=== PATIENT | male | born 1930 | race Two or more races ===

== ENCOUNTER 2017-10-02 11:46 | Inpatient (IN) | payer OTHER ==
[2017-10-02] VITALS (10 sets, daily range): BP systolic 86–116; BP diastolic 43–63
[~2017-10-02] VITALS: Ht 175.3 cm; Wt 79.2 kg
[~2017-10-02 11:46] MED LIST: ETOMIDATE (2MG/ML) 20ML VIAL IV ONE
[2017-10-02] MEDS: MIDAZOLAM DRIP 50 mg/50mL 50 ML IV SCH (11:55)
[2017-10-02] MEDS ORDERED: SODIUM CHLORIDE 0.9% 1,000 ML IV ONE (12:06)
[2017-10-02] MEDS ORDERED: MIDAZOLAM DRIP 50 mg/50mL 0 ML IV ONE (12:07)
[2017-10-02] MEDS ORDERED: ETOMIDATE (2MG/ML) 20ML VIAL IV ONE (12:08)
[2017-10-02] MEDS ORDERED: CLINDAMYCIN 600MG IV 50 ML IV ONE (12:15)
[2017-10-02] MEDS ORDERED: cefTRIAXone 1GM/10ml IVPUSH 10 ML IV ONE (12:15)
[2017-10-02] MEDS ORDERED: NOREPINEPHRINE 8 MG/250ML KIT 250 ML IV ONE (12:29)
[2017-10-02] MEDS: NOREPINEPHRINE 8 MG/250ML KIT 250 ML IV SCH (12:51)
[2017-10-02 13:00] LABS: Hematocrit 33.6 % (41.0-53.0); Hemoglobin 10.7 g/dL (13.5-17.5); Platelet Count (auto) 100 10^3/uL (140-450); Red Blood Cells 3.36 10^6/uL (4.5-5.90)
[2017-10-02 13:05] LABS: Mean Corpuscular Hemoglobin 31.8 pg (28.0-32.0); Mean Corpuscular Hgb Conc. 31.8 g/dL (32.0-36.0)
[2017-10-02 13:19] LABS: Basophils % (manual) 0 (0.0-2.0); Blast Cells 0; Eosinophils % (manual) 0 (0-7); Promyelocytes % 0; Reactive Lymphocytes 0
[2017-10-02 13:21] LABS: Albumin 3.2 g/dL (3.4-5.0); BUN/Creatinine Ratio 15.8; Bilirubin, Total 1.2 mg/dL (0.2-1.0); Calcium 8.2 mg/dL (8.5-10.1); Potassium 3.3 mmol/L (3.5-5.1); Total Protein 6.7 g/dL (6.4-8.2)
[2017-10-02 13:37] LABS: INR 1.15 (0.9-1.15); Partial Thromboplastin Time 27.9 sec (22.64-33.71); Prothrombin Time 12.6 sec (9.37-12.3)
[2017-10-02 13:45] LABS: Lactic Acid w/Reflex 9.8 mmol/L (0.4-2.0)
[2017-10-02 13:53] LABS: Band Neutrophils % (manual) 53; Lymphocytes % (manual) 2 (10.0-50.0); Metamyelocytes % 9; Monocytes % (manual) 2 (0-12); Myelocytes % 3
[2017-10-02] MEDS ORDERED: MORPHINE SULFATE 4 MG/ML SYR/VIAL IV PRN ×3 (15:30)
[2017-10-02] MEDS: SODIUM CHLORIDE 0.9% 1,000 ML IV SCH (15:30)
[2017-10-02] MEDS ORDERED: PIPERACILLIN-TAZOB 3.375GM 100 ML IV ONE (15:30)
[2017-10-02] MEDS ORDERED: SODIUM CHLORIDE 0.9% 2,000 ML IV ONE (15:30)
[2017-10-02] MEDS ORDERED: NITROGLYCERIN 0.4 MG SL TAB SL PRN (15:30)
[2017-10-02] MEDS ORDERED: PROMETHAZINE HCL 25 MG/ML 1ML IV PRN (15:30)
[2017-10-02] MEDS ORDERED: LORazepam 2MG/ML-1ML VIAL IV PRN (15:30)
[2017-10-02] MEDS ORDERED: PANTOPRAZOLE 40 MG/10 ML VIAL IV ONE (15:45)
[2017-10-02 16:18] LABS: Amylase 33 U/L (25-115); Lipase 83 U/L (73-393)
[2017-10-02] MEDS: LINEZOLID 600MG/300ML 300 ML IV SCH (17:00)
[2017-10-02] MEDS ORDERED: SITA100T7 PO (17:25)
[2017-10-02] MEDS ORDERED: LEV50T PO (17:25)
[2017-10-02] MEDS ORDERED: GLIP-116 PO (17:25)
[2017-10-02] MEDS ORDERED: METF-372 PO (17:25)
[2017-10-02] MEDS ORDERED: AMLO10TA2 PO (17:25)
[2017-10-02] MEDS ORDERED: FERR27TA2 PO (17:25)
[2017-10-02] MEDS: fentaNYL Drip 2500mCg/250mlNS 250 ML IV SCH (19:00)
[2017-10-02 19:02] LABS: Hemoglobin 10.2 g/dL (13.5-17.5)
[2017-10-02 19:08] LABS: Hematocrit 32.9 % (41.0-53.0)
[2017-10-02 19:32] LABS: Urine Bacteria NONE SEEN /hpf (None Seen); Urine Blood 3+ /uL (Negative); Urine Specific Gravity 1.021 (1.001-1.035); Urine WBC 3 /hpf (0 - 3)
[2017-10-02] MEDS: AZITHROMYCIN 500MG/ 250ML 250 ML IV SCH (21:03)
[2017-10-02] MEDS: PIPERACILLIN-TAZOB 3.375GM 100 ML IV SCH (22:54)
[2017-10-02] MEDS ORDERED: LEVO25TA6 PO (23:05)
[2017-10-02] MEDS ORDERED: FURO40TA4 PO (23:06)
[2017-10-03] VITALS (102 sets, daily range): BP systolic 77–148; BP diastolic 39–70
[2017-10-03 00:10] LABS: Hemoglobin 9.9 g/dL (13.5-17.5)
[2017-10-03 00:14] LABS: Hematocrit 31.1 % (41.0-53.0); Mean Corpuscular Hgb Conc. 31.7 g/dL (32.0-36.0); Mean Corpuscular Volume 100.8 fL (80.0-100.0); Platelet Count (auto) 104 10^3/uL (140-450); Red Blood Cells 3.09 10^6/uL (4.5-5.90); Red Cell Distribution Width 18.3 % (11.8-14.3)
[2017-10-03] MEDS ORDERED: SODIUM BICARBONATE 8.4% INJ 50ML SYRINGE ONE (00:14)
[2017-10-03 00:22] LABS: INR 1.26 (0.9-1.15); Partial Thromboplastin Time 32.7 sec (22.64-33.71); Prothrombin Time 13.8 sec (9.37-12.3)
[2017-10-03 00:29] LABS: Calcium 7.2 mg/dL (8.5-10.1); Potassium 4.1 mmol/L (3.5-5.1)
[2017-10-03 00:32] LABS: Albumin 2.8 g/dL (3.4-5.0); BUN/Creatinine Ratio 17.4
[2017-10-03 00:33] LABS: White Blood Cell 71.8 10^3/uL (4.4-10.8)
[2017-10-03 00:34] LABS: Basophils % (manual) 0 (0.0-2.0); Eosinophils % (manual) 0 (0-7); Promyelocytes % 0; Reactive Lymphocytes 0
[2017-10-03 00:35] LABS: Bilirubin, Total 1.4 mg/dL (0.2-1.0); Total Protein 6.5 g/dL (6.4-8.2)
[2017-10-03 00:39] LABS: Lactic Acid w/Reflex 9.2 mmol/L (0.4-2.0)
[2017-10-03 01:09] LABS: Band Neutrophils % (manual) 32; Blast Cells 1; Lymphocytes % (manual) 7 (10.0-50.0); Metamyelocytes % 6; Monocytes % (manual) 8 (0-12); Myelocytes % 3
[2017-10-03] MEDS: SODIUM CHLORIDE 0.9% 1,000 ML IV SCH ×3 (01:10→16:48)
[2017-10-03] MEDS: ACETAMINOPHEN 650 mg PER 20 mL UD GT PRN ×2 (01:10→09:01)
[2017-10-03] MEDS: ALBUTEROL SULF 2.5 MG/0.5ML(0.5%) NEB SOLN NEB SCH ×5 (02:11→18:16)
[2017-10-03] MEDS: IPRATROPIUM BROM 0.5 MG/2.5ML INH SOL NEB SCH ×4 (02:11→18:15)
[2017-10-03] MEDS ORDERED: SODIUM BICARBONATE 8.4 % INJ 50ML VIAL IV ONE ×4 (02:23→16:15)
[2017-10-03] MEDS: PIPERACILLIN-TAZOB 3.375GM 100 ML IV SCH ×4 (04:00→22:00)
[2017-10-03] MEDS: LINEZOLID 600MG/300ML 300 ML IV SCH (05:00)
[2017-10-03 06:08] LABS: Hematocrit 30.2 % (41.0-53.0)
[2017-10-03 06:11] LABS: Hemoglobin 9.5 g/dL (13.5-17.5); Mean Corpuscular Hemoglobin 31.8 pg (28.0-32.0); Mean Corpuscular Hgb Conc. 31.6 g/dL (32.0-36.0); Mean Corpuscular Volume 100.8 fL (80.0-100.0); Platelet Count (auto) 99 10^3/uL (140-450); Red Blood Cells 2.99 10^6/uL (4.5-5.90); Red Cell Distribution Width 18.3 % (11.8-14.3)
[2017-10-03 06:20] LABS: White Blood Cell 63.4 10^3/uL (4.4-10.8)
[2017-10-03 06:21] LABS: Blast Cells 0; Eosinophils % (manual) 0 (0-7); Promyelocytes % 0; Reactive Lymphocytes 0
[2017-10-03 06:35] LABS: Albumin 2.7 g/dL (3.4-5.0); Potassium 3.9 mmol/L (3.5-5.1)
[2017-10-03 06:37] LABS: Bilirubin, Total 1.3 mg/dL (0.2-1.0); Total Protein 6.2 g/dL (6.4-8.2)
[2017-10-03 06:55] LABS: Band Neutrophils % (manual) 28; Basophils % (manual) 1 (0.0-2.0); Lymphocytes % (manual) 2 (10.0-50.0); Metamyelocytes % 5; Monocytes % (manual) 10 (0-12); Myelocytes % 1
[2017-10-03] MEDS: MIDAZOLAM DRIP 50 mg/50mL 50 ML IV SCH ×4 (08:09→19:49)
[2017-10-03] MEDS: PHENYLEPHRINE INJ 20 MG in SODIUM CHL 0.9% 250 ML IV SCH ×2 (08:10→08:11)
[2017-10-03] MEDS: NOREPINEPHRINE 8 MG/250ML KIT 250 ML IV SCH ×2 (10:01→19:48)
[2017-10-03] MEDS: PANTOPRAZOLE 40 MG/10 ML VIAL IV SCH (10:32)
[2017-10-03] MEDS: ENOXAPARIN SOD 30 MG/0.3 ML SYRINGE SC SCH (10:32)
[2017-10-03] MEDS: PHENYLEPHRINE IV 250 ML IV SCH ×2 (13:30→21:47)
[2017-10-03] MEDS ORDERED: DEXTROSE (50%) 50ML SYRG IV PRN (14:45)
[2017-10-03 15:48] LABS: Hematocrit 32.6 % (41.0-53.0); Platelet Count (auto) 95 10^3/uL (140-450); Red Blood Cells 3.16 10^6/uL (4.5-5.90)
[2017-10-03 15:58] LABS: Mean Corpuscular Hemoglobin 31.6 pg (28.0-32.0); Mean Corpuscular Hgb Conc. 30.6 g/dL (32.0-36.0); Mean Corpuscular Volume 103.2 fL (80.0-100.0); Red Cell Distribution Width 19.4 % (11.8-14.3)
[2017-10-03 16:03] LABS: Albumin 2.7 g/dL (3.4-5.0); BUN/Creatinine Ratio 19.4; Bilirubin, Total 1.1 mg/dL (0.2-1.0); Calcium 6.8 mg/dL (8.5-10.1); Magnesium 1.4 mg/dL (1.6-2.6); Potassium 4.9 mmol/L (3.5-5.1); Total Protein 6.4 g/dL (6.4-8.2)
[2017-10-03 16:10] LABS: White Blood Cell 60.6 10^3/uL (4.4-10.8)
[2017-10-03 16:11] LABS: Basophils % (manual) 0 (0.0-2.0); Blast Cells 0; Eosinophils % (manual) 0 (0-7); Promyelocytes % 0; Reactive Lymphocytes 0
[2017-10-03] MEDS ORDERED: VANCOMYCIN PER PHARMACY 0 MG IV SCH (18:00)
[2017-10-03] MEDS: ACCU-CHEK COMFORT CURVE STRIP VI SCH (18:27)
[2017-10-03] MEDS ORDERED: VANCOMYCIN 1,250 MG in D5W 5% 250 ML IV ONE (18:30)
[2017-10-03] MEDS: InsuLIN REG 1unit/0.01ml Soln (100units/ml) SC SCH (18:33)
[2017-10-03] MEDS: AZITHROMYCIN 500MG/ 250ML 250 ML IV SCH (19:48)
[2017-10-03 20:30] LABS: Band Neutrophils % (manual) 10; Lymphocytes % (manual) 3 (10.0-50.0); Metamyelocytes % 2; Monocytes % (manual) 10 (0-12); Myelocytes % 3
[2017-10-03] MEDS: fentaNYL Drip 2500mCg/250mlNS 250 ML IV SCH ×2 (21:06→23:00)
[2017-10-03] MEDS: SODIUM BICARBONATE 50ML VIAL 150 ML in D5W 5% 1,000 ML IV SCH (21:57)
[2017-10-04] VITALS (107 sets, daily range): BP systolic 71–142; BP diastolic 34–74
[2017-10-04] MEDS: ACCU-CHEK COMFORT CURVE STRIP VI SCH ×4 (00:07→18:13)
[2017-10-04] MEDS: IPRATROPIUM BROM 0.5 MG/2.5ML INH SOL NEB SCH ×4 (00:07→18:28)
[2017-10-04] MEDS: ALBUTEROL SULF 2.5 MG/0.5ML(0.5%) NEB SOLN NEB SCH ×4 (00:10→18:28)
[2017-10-04] MEDS: InsuLIN REG 1unit/0.01ml Soln (100units/ml) SC SCH ×4 (00:17→18:19)
[2017-10-04] MEDS: NOREPINEPHRINE 8 MG/250ML KIT 250 ML IV SCH ×2 (01:48→08:51)
[2017-10-04 02:28] LABS: Creatinine, Urine 14 mg/dL (30.0-125.0); Sodium Urine 59 mmol/L (40-220)
[2017-10-04 03:58] LABS: Hematocrit 29.8 % (41.0-53.0); Red Blood Cells 3.02 10^6/uL (4.5-5.90)
[2017-10-04] MEDS: PIPERACILLIN-TAZOB 3.375GM 100 ML IV SCH ×4 (04:03→22:27)
[2017-10-04 04:05] LABS: Alanine Aminotransferase 24 U/L (16-61); Albumin 2.5 g/dL (3.4-5.0); Alkaline Phosphatase 48 U/L (45-117); Anion Gap 12 (5-15); Aspartate Aminotransferase 32 U/L (15-37); BUN/Creatinine Ratio 19.6; Bilirubin, Total 1.2 mg/dL (0.2-1.0); Blood Urea Nitrogen 32 mg/dL (7-18); Calcium 6.7 mg/dL (8.5-10.1); Carbon Dioxide 25 mmol/L (21-32); Chloride 101 mmol/L (98-107); Cholesterol < 50 mg/dL (< 200); GFR African American 52 mL/min; GFR Non-African American 43 mL/min; Glucose 343 mg/dL (74-106); HDL Cholesterol 14 mg/dL (40-59); Hemoglobin 9.7 g/dL (13.5-17.5); LDL Cholesterol 14 mg/dL (< 100); Lactate Dehydrogenase 275 U/L (87-241); Magnesium 1.5 mg/dL (1.6-2.6); Mean Corpuscular Hemoglobin 32.2 pg (28.0-32.0); Mean Corpuscular Hgb Conc. 32.6 g/dL (32.0-36.0); Mean Corpuscular Volume 98.6 fL (80.0-100.0); Platelet Count (auto) 87 10^3/uL (140-450); Potassium 3.4 mmol/L (3.5-5.1); Red Cell Distribution Width 18.1 % (11.8-14.3); Sodium 138 mmol/L (136-145); Triglycerides 132 mg/dL (< 150)
[2017-10-04 04:07] LABS: Phosphorus 2.3 mg/dL (2.5-4.90); Uric Acid 4.9 mg/dL (3.5-7.2)
[2017-10-04 04:11] LABS: White Blood Cell 48.6 10^3/uL (4.4-10.8)
[2017-10-04 04:12] LABS: Basophils % (manual) 0 (0.0-2.0); Blast Cells 0; Eosinophils % (manual) 0 (0-7); Metamyelocytes % 0; Myelocytes % 0; Promyelocytes % 0; Reactive Lymphocytes 0
[2017-10-04 04:44] LABS: Band Neutrophils % (manual) 19; Lymphocytes % (manual) 6 (10.0-50.0); Monocytes % (manual) 3 (0-12)
[2017-10-04] MEDS: PHENYLEPHRINE IV 250 ML IV SCH (06:04)
[2017-10-04] MEDS: MIDAZOLAM DRIP 50 mg/50mL 50 ML IV SCH (06:20)
[2017-10-04] MEDS: SODIUM BICARBONATE 50ML VIAL 150 ML in D5W 5% 1,000 ML IV SCH (08:30)
[2017-10-04] MEDS: VANCOMYCIN 1GM/250ML 250 ML IV SCH (08:49)
[2017-10-04] MEDS: PANTOPRAZOLE 40 MG/10 ML VIAL IV SCH (10:28)
[2017-10-04] MEDS: ENOXAPARIN SOD 30 MG/0.3 ML SYRINGE SC SCH (10:29)
[2017-10-04] MEDS: fentaNYL Drip 2500mCg/250mlNS 250 ML IV SCH (10:34)
[2017-10-04] MEDS: ALBUTEROL SULF 2.5 MG/0.5ML(0.5%) NEB SOLN NEB PRN (12:21)
[2017-10-04] MEDS: ACETAMINOPHEN 650 mg PER 20 mL UD GT PRN (12:29)
[2017-10-04] MEDS: SODIUM CHLORIDE 0.9% 1,000 ML IV SCH ×2 (12:39→22:15)
[2017-10-04 14:39] LABS: Lactic Acid w/Reflex 3.6 mmol/L (0.4-2.0)
[2017-10-04] MEDS: MAGNESIUM SULFATE 1GM/100ML 100 ML IV SCH ×2 (16:00→17:00)
[2017-10-04] MEDS ORDERED: MAGNESIUM SULFATE 1GM/100ML 100 ML IV ONE (18:27)
[2017-10-04] MEDS: AZITHROMYCIN 500MG/ 250ML 250 ML IV SCH (20:00)
[2017-10-05] VITALS (108 sets, daily range): BP systolic 97–140; BP diastolic 57–84
[2017-10-05] MEDS: ACCU-CHEK COMFORT CURVE STRIP VI SCH ×4 (00:05→23:20)
[2017-10-05] MEDS: InsuLIN REG 1unit/0.01ml Soln (100units/ml) SC SCH ×4 (00:06→23:29)
[2017-10-05] MEDS: SODIUM CHLORIDE 0.9% 1,000 ML IV SCH ×2 (02:45→18:15)
[2017-10-05] MEDS: NOREPINEPHRINE 8 MG/250ML KIT 250 ML IV SCH ×2 (02:45→12:46)
[2017-10-05] MEDS: IPRATROPIUM BROM 0.5 MG/2.5ML INH SOL NEB SCH ×4 (03:42→18:36)
[2017-10-05] MEDS: ALBUTEROL SULF 2.5 MG/0.5ML(0.5%) NEB SOLN NEB SCH ×4 (03:42→18:35)
[2017-10-05 03:54] LABS: Basophils # (auto) 0.1 uL; Basophils % (auto) 0.3 % (0.0-2.0); Eosinophils # (auto) 0 uL; Eosinophils % (auto) 0.2 % (0.0-7.0); Hematocrit 30.2 % (41.0-53.0); Hemoglobin 10.1 g/dL (13.5-17.5); Lymphocytes # (auto) 1.2 uL; Lymphocytes % (auto) 6.2 % (10.0-50.0); Mean Corpuscular Hemoglobin 32.8 pg (28.0-32.0); Mean Corpuscular Hgb Conc. 33.5 g/dL (32.0-36.0); Mean Corpuscular Volume 97.9 fL (80.0-100.0); Monocytes # (auto) 1.2 uL; Monocytes % (auto) 6.1 % (0.0-12.0); Neutrophils # (auto) 17.5 uL; Neutrophils % (auto) 87.2 % (37.0-80.0); Nucleated Red Blood Cells % 0.1 %; Platelet Count (auto) 89 10^3/uL (140-450); Red Blood Cells 3.08 10^6/uL (4.5-5.90); Red Cell Distribution Width 17.7 % (11.8-14.3); White Blood Cell 20.1 10^3/uL (4.4-10.8)
[2017-10-05 04:08] LABS: INR 1.1 (0.9-1.15)
[2017-10-05 04:12] LABS: Albumin 2.2 g/dL (3.4-5.0); Calcium 6.8 mg/dL (8.5-10.1); Magnesium 1.9 mg/dL (1.6-2.6)
[2017-10-05 04:14] LABS: BUN/Creatinine Ratio 20.2
[2017-10-05] MEDS: PIPERACILLIN-TAZOB 3.375GM 100 ML IV SCH ×4 (04:14→21:59)
[2017-10-05 04:16] LABS: Lactic Acid w/Reflex 2.1 mmol/L (0.4-2.0)
[2017-10-05 04:17] LABS: Bilirubin, Total 1.5 mg/dL (0.2-1.0); Total Protein 6.1 g/dL (6.4-8.2)
[2017-10-05] MEDS: VANCOMYCIN 1GM/250ML 250 ML IV SCH (09:08)
[2017-10-05] MEDS ORDERED: MIDAZOLAM DRIP 50 mg/50mL 0 ML IV ONE (09:14)
[2017-10-05] MEDS ORDERED: POTASSIUM CHL 20MEQ/100ML 200 ML IV ONE (09:36)
[2017-10-05] MEDS ORDERED: MAGNESIUM SULFATE 1GM/100ML 100 ML IV ONE (09:45)
[2017-10-05] MEDS: POTASSIUM CHL 20MEQ/100ML 100 ML IV SCH ×2 (09:47→11:00)
[2017-10-05] MEDS: PANTOPRAZOLE 40 MG/10 ML VIAL IV SCH (10:43)
[2017-10-05] MEDS: ENOXAPARIN SOD 30 MG/0.3 ML SYRINGE SC SCH (10:45)
[2017-10-05] MEDS: MIDAZOLAM DRIP 50 mg/50mL 50 ML IV SCH (12:22)
[2017-10-05] MEDS: fentaNYL Drip 2500mCg/250mlNS 250 ML IV SCH (12:45)
[2017-10-05] MEDS ORDERED: DEXTROSE (50%) 50ML SYRG IV PRN (12:45)
[2017-10-05] MEDS: FLUCONAZOLE 200MG/100ML 100 ML IV SCH ×2 (15:01→16:05)
[2017-10-05] MEDS: ACETAMINOPHEN 650 mg PER 20 mL UD GT PRN (18:20)
[2017-10-05] MEDS: AZITHROMYCIN 500MG/ 250ML 250 ML IV SCH (20:02)
[2017-10-06] VITALS (107 sets, daily range): BP systolic 94–146; BP diastolic 55–86
[2017-10-06] MEDS: IPRATROPIUM BROM 0.5 MG/2.5ML INH SOL NEB SCH ×4 (00:18→18:23)
[2017-10-06] MEDS: ALBUTEROL SULF 2.5 MG/0.5ML(0.5%) NEB SOLN NEB SCH ×4 (00:18→18:23)
[2017-10-06] MEDS: PIPERACILLIN-TAZOB 3.375GM 100 ML IV SCH ×4 (03:38→22:10)
[2017-10-06 04:04] LABS: Hematocrit 30.6 % (41.0-53.0); Hemoglobin 10.3 g/dL (13.5-17.5); Mean Corpuscular Hemoglobin 32.9 pg (28.0-32.0); Mean Corpuscular Hgb Conc. 33.6 g/dL (32.0-36.0); Mean Corpuscular Volume 97.7 fL (80.0-100.0); Platelet Count (auto) 100 10^3/uL (140-450); Red Blood Cells 3.13 10^6/uL (4.5-5.90); Red Cell Distribution Width 17.1 % (11.8-14.3); White Blood Cell 8.6 10^3/uL (4.4-10.8)
[2017-10-06 04:12] LABS: Basophils % (manual) 0 (0.0-2.0); Blast Cells 0; Eosinophils % (manual) 0 (0-7); Promyelocytes % 0; Reactive Lymphocytes 0
[2017-10-06] MEDS: SODIUM CHLORIDE 0.9% 1,000 ML IV SCH (04:15)
[2017-10-06 04:55] LABS: Albumin 2.2 g/dL (3.4-5.0); BUN/Creatinine Ratio 19.1; Calcium 7.1 mg/dL (8.5-10.1); Magnesium 2.2 mg/dL (1.6-2.6); Potassium 3.4 mmol/L (3.5-5.1)
[2017-10-06 04:57] LABS: Bilirubin, Total 1.2 mg/dL (0.2-1.0); Total Protein 6.1 g/dL (6.4-8.2)
[2017-10-06 05:00] LABS: Band Neutrophils % (manual) 15; Lymphocytes % (manual) 16 (10.0-50.0); Metamyelocytes % 1; Monocytes % (manual) 14 (0-12); Myelocytes % 1
[2017-10-06] MEDS: ACCU-CHEK COMFORT CURVE STRIP VI SCH ×4 (06:00→23:54)
[2017-10-06] MEDS: InsuLIN REG 1unit/0.01ml Soln (100units/ml) SC SCH ×4 (06:43→23:54)
[2017-10-06] MEDS: VANCOMYCIN 1GM/250ML 250 ML IV SCH (08:59)
[2017-10-06] MEDS: PANTOPRAZOLE 40 MG/10 ML VIAL IV SCH (10:08)
[2017-10-06] MEDS: FLUCONAZOLE 200MG/100ML 100 ML IV SCH (10:08)
[2017-10-06] MEDS: ENOXAPARIN SOD 30 MG/0.3 ML SYRINGE SC SCH (10:08)
[2017-10-06] MEDS: MIDAZOLAM DRIP 50 mg/50mL 50 ML IV SCH (12:22)
[2017-10-06] MEDS ORDERED: POTASSIUM CHL 10% (20 MEQ/15ML) 15ml ORAL SOLN GT ONE (14:15)
[2017-10-06] MEDS ORDERED: FUROSEMIDE 40 MG/4 ML VIAL IV ONE (14:15)
[2017-10-06] MEDS: Diabetisource AC 1 Liter GT SCH (15:16)
[2017-10-07] VITALS (100 sets, daily range): BP systolic 83–128; BP diastolic 48–70
[2017-10-07] MEDS: ALBUTEROL SULF 2.5 MG/0.5ML(0.5%) NEB SOLN NEB SCH ×4 (00:20→18:21)
[2017-10-07] MEDS: IPRATROPIUM BROM 0.5 MG/2.5ML INH SOL NEB SCH ×4 (00:20→18:20)
[2017-10-07] MEDS: PIPERACILLIN-TAZOB 3.375GM 100 ML IV SCH ×4 (03:51→22:00)
[2017-10-07 04:14] LABS: Hematocrit 29.1 % (41.0-53.0); Hemoglobin 9.9 g/dL (13.5-17.5); Mean Corpuscular Volume 97.1 fL (80.0-100.0); Platelet Count (auto) 91 10^3/uL (140-450); Red Cell Distribution Width 16.9 % (11.8-14.3); White Blood Cell 6.4 10^3/uL (4.4-10.8)
[2017-10-07 04:25] LABS: Basophils % (manual) 0 (0.0-2.0); Blast Cells 0; Eosinophils % (manual) 0 (0-7); Myelocytes % 0; Promyelocytes % 0; Reactive Lymphocytes 0
[2017-10-07 04:30] LABS: Albumin 2.2 g/dL (3.4-5.0); BUN/Creatinine Ratio 19.8; Bilirubin, Total 0.8 mg/dL (0.2-1.0); Calcium 7.1 mg/dL (8.5-10.1); Potassium 3.9 mmol/L (3.5-5.1)
[2017-10-07 05:04] LABS: Band Neutrophils % (manual) 4; Lymphocytes % (manual) 31 (10.0-50.0); Metamyelocytes % 1; Monocytes % (manual) 12 (0-12)
[2017-10-07] MEDS: InsuLIN REG 1unit/0.01ml Soln (100units/ml) SC SCH ×3 (06:00→18:09)
[2017-10-07] MEDS: ACCU-CHEK COMFORT CURVE STRIP VI SCH ×4 (06:27→23:59)
[2017-10-07] MEDS: VANCOMYCIN 1GM/250ML 250 ML IV SCH (09:18)
[2017-10-07] MEDS: PANTOPRAZOLE 40 MG/10 ML VIAL IV SCH (10:41)
[2017-10-07] MEDS: ENOXAPARIN SOD 30 MG/0.3 ML SYRINGE SC SCH (10:41)
[2017-10-07] MEDS: NOREPINEPHRINE 8 MG/250ML KIT 250 ML IV SCH (10:42)
[2017-10-07] MEDS: FLUCONAZOLE 200MG/100ML 100 ML IV SCH (14:03)
[2017-10-07] MEDS ORDERED: LACTULOSE 20Gm/30ML SOLN PO ONE (14:30)
[2017-10-07] MEDS ORDERED: INSULIN LANTUS (GLARGINE) 1 /0.01ml (100units/ml) SC ONE (14:30)
[2017-10-07] MEDS ORDERED: METOCLOPRAMIDE HCL 5MG/ml INJ 2ml VIAL IV ONE (15:45)
[2017-10-07] MEDS: INSULIN LANTUS (GLARGINE) 1 /0.01ml (100units/ml) SC SCH (22:00)
[2017-10-07] MEDS ORDERED: D5W/SOD CHLO 0.9% 1,000 ML IV ONE (22:45)
[2017-10-08] VITALS (99 sets, daily range): BP systolic 89–140; BP diastolic 51–98
[2017-10-08] MEDS: IPRATROPIUM BROM 0.5 MG/2.5ML INH SOL NEB SCH ×4 (00:01→18:31)
[2017-10-08] MEDS: ALBUTEROL SULF 2.5 MG/0.5ML(0.5%) NEB SOLN NEB SCH ×4 (00:02→18:31)
[2017-10-08] MEDS: PIPERACILLIN-TAZOB 3.375GM 100 ML IV SCH ×4 (04:08→22:00)
[2017-10-08 04:47] LABS: Hematocrit 28.6 % (41.0-53.0); Hemoglobin 9.8 g/dL (13.5-17.5); Mean Corpuscular Hemoglobin 33.2 pg (28.0-32.0); Mean Corpuscular Hgb Conc. 34.2 g/dL (32.0-36.0); Mean Corpuscular Volume 97.2 fL (80.0-100.0); Platelet Count (auto) 89 10^3/uL (140-450); Red Blood Cells 2.94 10^6/uL (4.5-5.90); Red Cell Distribution Width 17.3 % (11.8-14.3); White Blood Cell 6.3 10^3/uL (4.4-10.8)
[2017-10-08 04:50] LABS: Basophils % (manual) 0 (0.0-2.0); Blast Cells 0; Eosinophils % (manual) 0 (0-7); Myelocytes % 0; Promyelocytes % 0
[2017-10-08 04:58] LABS: BUN/Creatinine Ratio 20.4; Calcium 7.4 mg/dL (8.5-10.1); Potassium 3.6 mmol/L (3.5-5.1)
[2017-10-08] MEDS: ACCU-CHEK COMFORT CURVE STRIP VI SCH ×3 (05:48→17:43)
[2017-10-08] MEDS: InsuLIN REG 1unit/0.01ml Soln (100units/ml) SC SCH ×4 (05:49→17:43)
[2017-10-08 05:50] LABS: Band Neutrophils % (manual) 5; Lymphocytes % (manual) 26 (10.0-50.0)
[2017-10-08 05:51] LABS: Metamyelocytes % 2; Monocytes % (manual) 11 (0-12); Reactive Lymphocytes 4
[2017-10-08] MEDS ORDERED: VANCOMYCIN 1,250 MG in D5W 5% 250 ML IV SCH (09:00)
[2017-10-08] MEDS: PANTOPRAZOLE 40 MG/10 ML VIAL IV SCH (09:49)
[2017-10-08] MEDS: FLUCONAZOLE 200MG/100ML 100 ML IV SCH (09:49)
[2017-10-08] MEDS: NOREPINEPHRINE 8 MG/250ML KIT 250 ML IV SCH (12:22)
[2017-10-08] MEDS: Diabetisource AC 1 Liter GT SCH (13:30)
[2017-10-08] MEDS: INSULIN LANTUS (GLARGINE) 1 /0.01ml (100units/ml) SC SCH (22:00)
[2017-10-09] VITALS (56 sets, daily range): BP systolic 116–147; BP diastolic 64–91
[2017-10-09] MEDS: ACCU-CHEK COMFORT CURVE STRIP VI SCH ×5 (00:20→23:09)
[2017-10-09] MEDS: InsuLIN REG 1unit/0.01ml Soln (100units/ml) SC SCH ×6 (00:21→23:10)
[2017-10-09] MEDS: IPRATROPIUM BROM 0.5 MG/2.5ML INH SOL NEB SCH ×4 (00:23→18:35)
[2017-10-09] MEDS: ALBUTEROL SULF 2.5 MG/0.5ML(0.5%) NEB SOLN NEB SCH ×4 (00:23→18:35)
[2017-10-09] MEDS: VANCOMYCIN 1,250 MG in D5W 5% 250 ML IV SCH ×2 (03:14→20:43)
[2017-10-09 03:50] LABS: Hematocrit 29.3 % (41.0-53.0); Mean Corpuscular Hemoglobin 33.1 pg (28.0-32.0); Mean Corpuscular Hgb Conc. 34.1 g/dL (32.0-36.0); Platelet Count (auto) 99 10^3/uL (140-450); Red Blood Cells 3.02 10^6/uL (4.5-5.90); Red Cell Distribution Width 16.6 % (11.8-14.3); White Blood Cell 7.5 10^3/uL (4.4-10.8)
[2017-10-09 04:07] LABS: Basophils % (manual) 0 (0.0-2.0); Blast Cells 0; Eosinophils % (manual) 0 (0-7); Promyelocytes % 0; Reactive Lymphocytes 0
[2017-10-09] MEDS: PIPERACILLIN-TAZOB 3.375GM 100 ML IV SCH ×4 (04:09→22:00)
[2017-10-09 04:58] LABS: Band Neutrophils % (manual) 10; Lymphocytes % (manual) 25 (10.0-50.0); Metamyelocytes % 4; Monocytes % (manual) 23 (0-12); Myelocytes % 2
[2017-10-09] MEDS: FLUCONAZOLE 200MG/100ML 100 ML IV SCH (09:29)
[2017-10-09] MEDS: ACETAMINOPHEN 650 mg PER 20 mL UD GT PRN ×2 (09:36→20:43)
[2017-10-09] MEDS: PANTOPRAZOLE 40 MG/10 ML VIAL IV SCH (09:36)
[2017-10-09] MEDS: NOREPINEPHRINE 8 MG/250ML KIT 250 ML IV SCH (11:57)
[2017-10-09] MEDS ORDERED: POTASSIUM CHL 10% (20 MEQ/15ML) 15ml ORAL SOLN GT ONE (12:15)
[2017-10-09] MEDS ORDERED: FUROSEMIDE 20 MG/2 ML VIAL IV ONE (12:15)
[2017-10-09] MEDS ORDERED: MICAFUNGIN SODIUM 100 MG in SODIUM CHL 0.9% 100 ML IV ONE (12:15)
[2017-10-09] MEDS: LORazepam 2MG/ML-1ML VIAL IV PRN ×2 (12:51→20:43)
[2017-10-09] MEDS: INSULIN LANTUS (GLARGINE) 1 /0.01ml (100units/ml) SC SCH (22:00)
[2017-10-10] VITALS (55 sets, daily range): BP systolic 103–154; BP diastolic 56–101
[2017-10-10] MEDS: IPRATROPIUM BROM 0.5 MG/2.5ML INH SOL NEB SCH ×4 (00:10→18:54)
[2017-10-10] MEDS: ALBUTEROL SULF 2.5 MG/0.5ML(0.5%) NEB SOLN NEB SCH ×4 (00:10→18:54)
[2017-10-10] MEDS: LORazepam 2MG/ML-1ML VIAL IV PRN ×3 (03:25→19:51)
[2017-10-10 03:35] LABS: Hematocrit 28.9 % (41.0-53.0); Hemoglobin 9.8 g/dL (13.5-17.5); Mean Corpuscular Hemoglobin 32.4 pg (28.0-32.0); Mean Corpuscular Hgb Conc. 33.8 g/dL (32.0-36.0); Mean Corpuscular Volume 95.7 fL (80.0-100.0); Platelet Count (auto) 106 10^3/uL (140-450); Red Blood Cells 3.02 10^6/uL (4.5-5.90); Red Cell Distribution Width 16.8 % (11.8-14.3); White Blood Cell 9.6 10^3/uL (4.4-10.8)
[2017-10-10 03:54] LABS: Albumin 2.5 g/dL (3.4-5.0); BUN/Creatinine Ratio 8.2; Calcium 7.8 mg/dL (8.5-10.1); Potassium 3.1 mmol/L (3.5-5.1)
[2017-10-10 03:57] LABS: Bilirubin, Total 0.9 mg/dL (0.2-1.0); Total Protein 6.9 g/dL (6.4-8.2)
[2017-10-10 04:03] LABS: Basophils % (manual) 0 (0.0-2.0); Blast Cells 0; Eosinophils % (manual) 0 (0-7); Reactive Lymphocytes 0
[2017-10-10] MEDS: PIPERACILLIN-TAZOB 3.375GM 100 ML IV SCH ×4 (04:35→21:32)
[2017-10-10 04:50] LABS: Band Neutrophils % (manual) 11; Lymphocytes % (manual) 12 (10.0-50.0); Metamyelocytes % 9; Monocytes % (manual) 20 (0-12); Myelocytes % 6; Promyelocytes % 1
[2017-10-10] MEDS ORDERED: POTASSIUM CHL 10% (20 MEQ/15ML) 15ml ORAL SOLN GT ONE ×3 (05:45→12:15)
[2017-10-10] MEDS: InsuLIN REG 1unit/0.01ml Soln (100units/ml) SC SCH ×4 (06:00→23:54)
[2017-10-10] MEDS: ACCU-CHEK COMFORT CURVE STRIP VI SCH ×4 (06:07→23:54)
[2017-10-10] MEDS ORDERED: FUROSEMIDE 20 MG/2 ML VIAL IV ONE ×2 (09:30→12:15)
[2017-10-10] MEDS: PANTOPRAZOLE 40 MG/10 ML VIAL IV SCH (10:00)
[2017-10-10] MEDS: ACETAMINOPHEN 650 mg PER 20 mL UD GT PRN (10:21)
[2017-10-10] MEDS ORDERED: POTASSIUM CHL 10% (20 MEQ/15ML) 15ml ORAL SOLN ONE (12:07)
[2017-10-10] MEDS ORDERED: FUROSEMIDE 20 MG/2 ML VIAL ONE (12:07)
[2017-10-10] MEDS: MICAFUNGIN SODIUM 100 MG in SODIUM CHL 0.9% 100 ML IV SCH (13:22)
[2017-10-10] MEDS ORDERED: MORPHINE SULFATE INJECTION 1 ML ONE (18:05)
[2017-10-10] MEDS: VANCOMYCIN 1,250 MG in D5W 5% 250 ML IV SCH (18:14)
[2017-10-10] MEDS: INSULIN LANTUS (GLARGINE) 1 /0.01ml (100units/ml) SC SCH (21:32)
[2017-10-10] MEDS: MORPHINE SULFATE 4 MG/ML SYR/VIAL IV PRN (22:17)
[2017-10-11] VITALS (71 sets, daily range): BP systolic 98–159; BP diastolic 58–94
[2017-10-11] MEDS: IPRATROPIUM BROM 0.5 MG/2.5ML INH SOL NEB SCH ×4 (00:25→18:23)
[2017-10-11] MEDS: ALBUTEROL SULF 2.5 MG/0.5ML(0.5%) NEB SOLN NEB SCH ×4 (00:25→18:24)
[2017-10-11] MEDS: LORazepam 2MG/ML-1ML VIAL IV PRN ×2 (02:06→20:03)
[2017-10-11 03:59] LABS: Hematocrit 28.2 % (41.0-53.0); Hemoglobin 9.6 g/dL (13.5-17.5); Mean Corpuscular Hemoglobin 32.7 pg (28.0-32.0); Mean Corpuscular Volume 96.3 fL (80.0-100.0); Platelet Count (auto) 115 10^3/uL (140-450); Red Blood Cells 2.93 10^6/uL (4.5-5.90); Red Cell Distribution Width 16.7 % (11.8-14.3); White Blood Cell 9.9 10^3/uL (4.4-10.8)
[2017-10-11 04:15] LABS: BUN/Creatinine Ratio 6.7; Calcium 7.9 mg/dL (8.5-10.1); Potassium 3.4 mmol/L (3.5-5.1)
[2017-10-11 04:17] LABS: Basophils % (manual) 0 (0.0-2.0); Blast Cells 0; Eosinophils % (manual) 0 (0-7); Promyelocytes % 0
[2017-10-11] MEDS: PIPERACILLIN-TAZOB 3.375GM 100 ML IV SCH ×4 (04:22→22:09)
[2017-10-11] MEDS: MORPHINE SULFATE 4 MG/ML SYR/VIAL IV PRN ×2 (04:22→11:57)
[2017-10-11 04:50] LABS: Band Neutrophils % (manual) 6; Lymphocytes % (manual) 24 (10.0-50.0); Metamyelocytes % 6; Monocytes % (manual) 21 (0-12); Myelocytes % 8; Reactive Lymphocytes 2
[2017-10-11] MEDS: VANCOMYCIN 1,250 MG in D5W 5% 250 ML IV SCH (04:54)
[2017-10-11] MEDS: InsuLIN REG 1unit/0.01ml Soln (100units/ml) SC SCH ×3 (05:41→17:32)
[2017-10-11] MEDS: ACCU-CHEK COMFORT CURVE STRIP VI SCH ×3 (05:41→17:32)
[2017-10-11] MEDS: PANTOPRAZOLE 40 MG/10 ML VIAL IV SCH (10:28)
[2017-10-11] MEDS: MICAFUNGIN SODIUM 100 MG in SODIUM CHL 0.9% 100 ML IV SCH (10:28)
[2017-10-11] MEDS ORDERED: POTASSIUM CHL 10% (20 MEQ/15ML) 15ml ORAL SOLN GT ONE (13:00)
[2017-10-11] MEDS ORDERED: FUROSEMIDE 40 MG/4 ML VIAL IV ONE (13:00)
[2017-10-11] MEDS ORDERED: POTASSIUM CHL 20MEQ/100ML 200 ML IV ONE (14:04)
[2017-10-11] MEDS ORDERED: POTASSIUM CHL 20MEQ/100ML 100 ML IV SCH (14:15)
[2017-10-11] MEDS ORDERED: HALOPERIDOL LACTATE 5 MG/ML INJ VIAL IM ONE (20:45)
[2017-10-11] MEDS: INSULIN LANTUS (GLARGINE) 1 /0.01ml (100units/ml) SC SCH (22:09)
[2017-10-12] VITALS (23 sets, daily range): BP systolic 100–152; BP diastolic 63–106
[2017-10-12] MEDS: MORPHINE SULFATE 4 MG/ML SYR/VIAL IV PRN (00:05)
[2017-10-12] MEDS: ACCU-CHEK COMFORT CURVE STRIP VI SCH ×4 (00:40→18:13)
[2017-10-12] MEDS: InsuLIN REG 1unit/0.01ml Soln (100units/ml) SC SCH ×4 (00:40→18:13)
[2017-10-12] MEDS: ALBUTEROL SULF 2.5 MG/0.5ML(0.5%) NEB SOLN NEB SCH ×5 (00:53→23:25)
[2017-10-12] MEDS: IPRATROPIUM BROM 0.5 MG/2.5ML INH SOL NEB SCH ×5 (00:53→23:25)
[2017-10-12] MEDS ORDERED: FUROSEMIDE 20 MG/2 ML VIAL ONE (01:58)
[2017-10-12] MEDS ORDERED: FUROSEMIDE 20 MG/2 ML VIAL IV ONE (02:00)
[2017-10-12 02:37] LABS: Hematocrit 30.7 % (41.0-53.0); Hemoglobin 10.4 g/dL (13.5-17.5); Mean Corpuscular Hemoglobin 32.3 pg (28.0-32.0); Mean Corpuscular Volume 94.9 fL (80.0-100.0); Platelet Count (auto) 131 10^3/uL (140-450); Red Blood Cells 3.23 10^6/uL (4.5-5.90); Red Cell Distribution Width 16.5 % (11.8-14.3)
[2017-10-12 02:45] LABS: Basophils % (manual) 0 (0.0-2.0); Blast Cells 0; Promyelocytes % 0; Reactive Lymphocytes 0
[2017-10-12 02:59] LABS: BUN/Creatinine Ratio 8.3; Calcium 8.4 mg/dL (8.5-10.1); Magnesium 1.7 mg/dL (1.6-2.6)
[2017-10-12 04:13] LABS: Band Neutrophils % (manual) 8; Eosinophils % (manual) 1 (0-7); Lymphocytes % (manual) 18 (10.0-50.0); Metamyelocytes % 6; Monocytes % (manual) 25 (0-12); Myelocytes % 4
[2017-10-12] MEDS ORDERED: POTASSIUM CHL 20MEQ/100ML 100 ML IV ONE (04:45)
[2017-10-12] MEDS: PIPERACILLIN-TAZOB 3.375GM 100 ML IV SCH ×4 (05:10→21:45)
[2017-10-12] MEDS: VANCOMYCIN 1,250 MG in D5W 5% 250 ML IV SCH ×2 (09:00→09:34)
[2017-10-12] MEDS: PANTOPRAZOLE 40 MG/10 ML VIAL IV SCH (09:40)
[2017-10-12] MEDS: MICAFUNGIN SODIUM 100 MG in SODIUM CHL 0.9% 100 ML IV SCH (09:41)
[2017-10-12] MEDS ORDERED: FUROSEMIDE 40 MG/4 ML VIAL IV ONE (12:30)
[2017-10-12] MEDS ORDERED: POTASSIUM CHL 20 Meq TABLET PO ONE (12:30)
[2017-10-12] MEDS: INSULIN LANTUS (GLARGINE) 1 /0.01ml (100units/ml) SC SCH (21:46)
[2017-10-13] VITALS (8 sets, daily range): BP systolic 111–126; BP diastolic 68–86
[2017-10-13] MEDS: ACCU-CHEK COMFORT CURVE STRIP VI SCH ×4 (00:05→17:54)
[2017-10-13] MEDS: VANCOMYCIN 1,250 MG in D5W 5% 250 ML IV SCH (00:05)
[2017-10-13] MEDS: InsuLIN REG 1unit/0.01ml Soln (100units/ml) SC SCH ×4 (00:05→18:06)
[2017-10-13] MEDS: PIPERACILLIN-TAZOB 3.375GM 100 ML IV SCH ×2 (04:43→09:52)
[2017-10-13 05:16] LABS: Hematocrit 29.8 % (41.0-53.0); Hemoglobin 10.3 g/dL (13.5-17.5); Mean Corpuscular Hemoglobin 32.8 pg (28.0-32.0); Mean Corpuscular Hgb Conc. 34.4 g/dL (32.0-36.0); Mean Corpuscular Volume 95.3 fL (80.0-100.0); Platelet Count (auto) 133 10^3/uL (140-450); Red Blood Cells 3.13 10^6/uL (4.5-5.90); Red Cell Distribution Width 17.1 % (11.8-14.3); White Blood Cell 7.8 10^3/uL (4.4-10.8)
[2017-10-13 05:23] LABS: Promyelocytes % 0; Reactive Lymphocytes 0
[2017-10-13 05:24] LABS: Blast Cells 0
[2017-10-13 05:33] LABS: Calcium 8.3 mg/dL (8.5-10.1)
[2017-10-13 05:35] LABS: Potassium 2.8 mmol/L (3.5-5.1)
[2017-10-13] MEDS: IPRATROPIUM BROM 0.5 MG/2.5ML INH SOL NEB SCH ×3 (06:09→18:41)
[2017-10-13] MEDS: ALBUTEROL SULF 2.5 MG/0.5ML(0.5%) NEB SOLN NEB SCH ×3 (06:09→18:41)
[2017-10-13 06:38] LABS: Band Neutrophils % (manual) 11; Basophils % (manual) 1 (0.0-2.0); Eosinophils % (manual) 1 (0-7); Lymphocytes % (manual) 25 (10.0-50.0); Metamyelocytes % 3; Monocytes % (manual) 21 (0-12); Myelocytes % 4
[2017-10-13] MEDS: POTASSIUM CHL 20MEQ/100ML 100 ML IV SCH ×2 (07:29→09:51)
[2017-10-13] MEDS: PANTOPRAZOLE 40 MG/10 ML VIAL IV SCH (09:52)
[2017-10-13] MEDS: FUROSEMIDE 40 MG/4 ML VIAL IV SCH (09:52)
[2017-10-13] MEDS: MICAFUNGIN SODIUM 100 MG in SODIUM CHL 0.9% 100 ML IV SCH (09:54)
[2017-10-13] MEDS ORDERED: POTASSIUM CHL 20 Meq TABLET PO SCH (10:00)
[2017-10-13] MEDS ORDERED: MORPHINE SULFATE 4 MG/ML SYR/VIAL IV PRN (10:45)
[2017-10-13] MEDS ORDERED: LORazepam 2MG/ML-1ML VIAL IV PRN (10:45)
[2017-10-13] MEDS ORDERED: MORPHINE SULFATE 8mg/ml INJ SDV IV PRN (16:00)
[2017-10-13] MEDS: ACETAMINOPHEN 650 mg PER 20 mL UD GT PRN (21:37)
[2017-10-14] VITALS (7 sets, daily range): BP systolic 114–138; BP diastolic 69–86
[2017-10-14] MEDS: ACCU-CHEK COMFORT CURVE STRIP VI SCH ×4 (00:14→18:05)
[2017-10-14] MEDS: InsuLIN REG 1unit/0.01ml Soln (100units/ml) SC SCH ×4 (00:15→18:05)
[2017-10-14] MEDS: ALBUTEROL SULF 2.5 MG/0.5ML(0.5%) NEB SOLN NEB SCH ×4 (00:38→18:30)
[2017-10-14] MEDS: IPRATROPIUM BROM 0.5 MG/2.5ML INH SOL NEB SCH ×4 (00:38→18:30)
[2017-10-14 05:26] LABS: Albumin 2.9 g/dL (3.4-5.0); BUN/Creatinine Ratio 8.6; Bilirubin, Total 0.8 mg/dL (0.2-1.0); Calcium 8.4 mg/dL (8.5-10.1); Magnesium 1.9 mg/dL (1.6-2.6); Total Protein 7.4 g/dL (6.4-8.2)
[2017-10-14] MEDS: POTASSIUM CHL 10% (20 MEQ/15ML) 15ml ORAL SOLN PO SCH (10:48)
[2017-10-14] MEDS: PANTOPRAZOLE 40 MG/10 ML VIAL IV SCH (10:48)
[2017-10-14] MEDS: MICAFUNGIN SODIUM 100 MG in SODIUM CHL 0.9% 100 ML IV SCH (10:48)
[2017-10-14] MEDS: FUROSEMIDE 40 MG/4 ML VIAL IV SCH (10:48)
[2017-10-14] MEDS: cefTRIAXone 1GM/10ml IVPUSH 10 ML IV SCH (10:49)
[2017-10-14] MEDS ORDERED: POTASSIUM CHL 20MEQ/100ML 100 ML IV ONE (14:45)
[2017-10-14] MEDS: D5W/SOD CHL 0.45% 1,000 ML IV SCH (16:34)
[2017-10-14] MEDS: ALBUTEROL SULF 2.5 MG/0.5ML(0.5%) NEB SOLN NEB PRN (21:35)
[2017-10-15] VITALS (11 sets, daily range): BP systolic 104–135; BP diastolic 62–84
[2017-10-15] MEDS: InsuLIN REG 1unit/0.01ml Soln (100units/ml) SC SCH ×4 (00:13→17:58)
[2017-10-15] MEDS: ACCU-CHEK COMFORT CURVE STRIP VI SCH ×4 (00:14→17:58)
[2017-10-15] MEDS: ALBUTEROL SULF 2.5 MG/0.5ML(0.5%) NEB SOLN NEB SCH ×4 (00:21→18:31)
[2017-10-15] MEDS: IPRATROPIUM BROM 0.5 MG/2.5ML INH SOL NEB SCH ×4 (00:21→18:30)
[2017-10-15 05:26] LABS: Albumin 2.9 g/dL (3.4-5.0); Calcium 8.4 mg/dL (8.5-10.1); Potassium 3.4 mmol/L (3.5-5.1)
[2017-10-15 05:28] LABS: BUN/Creatinine Ratio 9.9
[2017-10-15 05:31] LABS: Bilirubin, Total 0.7 mg/dL (0.2-1.0); Total Protein 7.7 g/dL (6.4-8.2)
[2017-10-15] MEDS: D5W/SOD CHL 0.45% 1,000 ML IV SCH ×2 (06:18→21:37)
[2017-10-15] MEDS: cefTRIAXone 1GM/10ml IVPUSH 10 ML IV SCH (09:00)
[2017-10-15] MEDS: PANTOPRAZOLE 40 MG/10 ML VIAL IV SCH (09:56)
[2017-10-15] MEDS: MICAFUNGIN SODIUM 100 MG in SODIUM CHL 0.9% 100 ML IV SCH (09:56)
[2017-10-15] MEDS: POTASSIUM CHL 10% (20 MEQ/15ML) 15ml ORAL SOLN PO SCH (09:57)
[2017-10-15] MEDS: POTASSIUM CHL 20MEQ/100ML 100 ML IV SCH ×2 (11:46→13:50)
[2017-10-15] MEDS ORDERED: VANCOMYCIN PER PHARMACY 0 MG IV SCH (14:30)
[2017-10-15] MEDS ORDERED: ENOXAPARIN SOD 30 MG/0.3 ML SYRINGE SC ONE (14:45)
[2017-10-15] MEDS: PIPERACILLIN-TAZOB 2.25GM 50 ML IV SCH ×2 (15:38→21:37)
[2017-10-15] MEDS ORDERED: VANCOMYCIN 1GM/250ML 250 ML IV ONE (17:00)
[2017-10-16] VITALS (7 sets, daily range): BP systolic 121–131; BP diastolic 63–78
[2017-10-16] MEDS: IPRATROPIUM BROM 0.5 MG/2.5ML INH SOL NEB SCH ×5 (00:22→18:47)
[2017-10-16] MEDS: ALBUTEROL SULF 2.5 MG/0.5ML(0.5%) NEB SOLN NEB SCH ×5 (00:23→18:47)
[2017-10-16] MEDS: PIPERACILLIN-TAZOB 2.25GM 50 ML IV SCH ×4 (03:30→21:11)
[2017-10-16 05:44] LABS: Albumin 2.9 g/dL (3.4-5.0); BUN/Creatinine Ratio 9.6; Bilirubin, Total 0.8 mg/dL (0.2-1.0); Calcium 8.2 mg/dL (8.5-10.1); Potassium 3.7 mmol/L (3.5-5.1); Total Protein 7.3 g/dL (6.4-8.2)
[2017-10-16] MEDS: ACCU-CHEK COMFORT CURVE STRIP VI SCH ×4 (06:00→17:56)
[2017-10-16] MEDS: InsuLIN REG 1unit/0.01ml Soln (100units/ml) SC SCH ×4 (06:00→17:56)
[2017-10-16] MEDS: D5W/SOD CHL 0.45% 1,000 ML IV SCH (10:43)
[2017-10-16] MEDS: MICAFUNGIN SODIUM 100 MG in SODIUM CHL 0.9% 100 ML IV SCH (11:00)
[2017-10-16] MEDS: ENOXAPARIN SOD 30 MG/0.3 ML SYRINGE SC SCH (11:00)
[2017-10-16] MEDS: PANTOPRAZOLE 40 MG/10 ML VIAL IV SCH (11:00)
[2017-10-16] MEDS ORDERED: ALBUTEROL SULF 2.5 MG/0.5ML(0.5%) NEB SOLN NEB PRN (11:45)
[2017-10-16] MEDS ORDERED: ACETAMINOPHEN 650 mg PER 20 mL UD GT PRN (11:45)
[2017-10-16] MEDS: SOD CHL 0.45% WITH 20MEQ KCL 1,000 ML IV SCH (12:22)
[2017-10-17] VITALS (9 sets, daily range): BP systolic 123–145; BP diastolic 73–86
[2017-10-17] MEDS: ACCU-CHEK COMFORT CURVE STRIP VI SCH ×5 (00:05→23:40)
[2017-10-17] MEDS: InsuLIN REG 1unit/0.01ml Soln (100units/ml) SC SCH ×5 (00:06→23:40)
[2017-10-17] MEDS: ALBUTEROL SULF 2.5 MG/0.5ML(0.5%) NEB SOLN NEB SCH ×4 (00:15→18:20)
[2017-10-17] MEDS: IPRATROPIUM BROM 0.5 MG/2.5ML INH SOL NEB SCH ×4 (00:15→18:20)
[2017-10-17] MEDS: PIPERACILLIN-TAZOB 2.25GM 50 ML IV SCH ×4 (03:07→21:28)
[2017-10-17 06:06] LABS: Albumin 2.7 g/dL (3.4-5.0); Bilirubin, Total 0.9 mg/dL (0.2-1.0); Calcium 8.2 mg/dL (8.5-10.1); Magnesium 1.8 mg/dL (1.6-2.6); Potassium 3.7 mmol/L (3.5-5.1); Uric Acid 4.8 mg/dL (3.5-7.2)
[2017-10-17 06:07] LABS: Hematocrit 27.4 % (41.0-53.0); Hemoglobin 9.4 g/dL (13.5-17.5); Mean Corpuscular Hgb Conc. 34.2 g/dL (32.0-36.0); Mean Corpuscular Volume 96.4 fL (80.0-100.0); Platelet Count (auto) 108 10^3/uL (140-450); Red Blood Cells 2.85 10^6/uL (4.5-5.90); Red Cell Distribution Width 16.6 % (11.8-14.3); White Blood Cell 5.9 10^3/uL (4.4-10.8)
[2017-10-17 06:17] LABS: Basophils % (manual) 0 (0.0-2.0); Blast Cells 0; Myelocytes % 0; Promyelocytes % 0; Reactive Lymphocytes 0
[2017-10-17] MEDS: SOD CHL 0.45% WITH 20MEQ KCL 1,000 ML IV SCH (07:26)
[2017-10-17 10:05] LABS: Band Neutrophils % (manual) 17; Eosinophils % (manual) 1 (0-7); Metamyelocytes % 2
[2017-10-17 10:06] LABS: Lymphocytes % (manual) 32 (10.0-50.0); Monocytes % (manual) 15 (0-12)
[2017-10-17] MEDS: MICAFUNGIN SODIUM 100 MG in SODIUM CHL 0.9% 100 ML IV SCH (10:45)
[2017-10-17] MEDS: PANTOPRAZOLE 40 MG/10 ML VIAL IV SCH (10:45)
[2017-10-17] MEDS: ENOXAPARIN SOD 30 MG/0.3 ML SYRINGE SC SCH (10:46)
[2017-10-18] MEDS: IPRATROPIUM BROM 0.5 MG/2.5ML INH SOL NEB SCH ×5 (00:25→23:51)
[2017-10-18] MEDS: ALBUTEROL SULF 2.5 MG/0.5ML(0.5%) NEB SOLN NEB SCH ×5 (00:25→23:51)
[2017-10-18] MEDS: PIPERACILLIN-TAZOB 2.25GM 50 ML IV SCH ×2 (03:00→09:15)
[2017-10-18] MEDS: ACCU-CHEK COMFORT CURVE STRIP VI SCH ×4 (06:00→23:49)
[2017-10-18] MEDS: InsuLIN REG 1unit/0.01ml Soln (100units/ml) SC SCH ×4 (06:00→23:49)
[2017-10-18 06:02] LABS: Hematocrit 26.6 % (41.0-53.0); Hemoglobin 9.2 g/dL (13.5-17.5); Mean Corpuscular Hemoglobin 33.3 pg (28.0-32.0); Mean Corpuscular Hgb Conc. 34.6 g/dL (32.0-36.0); Mean Corpuscular Volume 96.2 fL (80.0-100.0); Platelet Count (auto) 108 10^3/uL (140-450); Red Blood Cells 2.77 10^6/uL (4.5-5.90); Red Cell Distribution Width 16.8 % (11.8-14.3); White Blood Cell 4.3 10^3/uL (4.4-10.8)
[2017-10-18 06:17] LABS: Basophils % (manual) 0 (0.0-2.0); Blast Cells 0; Eosinophils % (manual) 0 (0-7); Metamyelocytes % 0; Promyelocytes % 0
[2017-10-18 06:18] LABS: Albumin 2.7 g/dL (3.4-5.0); BUN/Creatinine Ratio 10.8; Bilirubin, Total 0.9 mg/dL (0.2-1.0); Calcium 8.2 mg/dL (8.5-10.1); Potassium 3.6 mmol/L (3.5-5.1); Total Protein 6.8 g/dL (6.4-8.2)
[2017-10-18] MEDS: SOD CHL 0.45% WITH 20MEQ KCL 1,000 ML IV SCH (06:55)
[2017-10-18 07:53] VITALS: BP 127/71
[2017-10-18] MEDS: MICAFUNGIN SODIUM 100 MG in SODIUM CHL 0.9% 100 ML IV SCH (09:15)
[2017-10-18] MEDS: PANTOPRAZOLE 40 MG/10 ML VIAL IV SCH (09:15)
[2017-10-18] MEDS: ENOXAPARIN SOD 30 MG/0.3 ML SYRINGE SC SCH (09:15)
[2017-10-18 09:38] LABS: Band Neutrophils % (manual) 3; Lymphocytes % (manual) 41 (10.0-50.0); Monocytes % (manual) 18 (0-12); Myelocytes % 2; Reactive Lymphocytes 1
[2017-10-18] MEDS ORDERED: DEXTROSE (50%) 50ML SYRG IV PRN (10:45)
[2017-10-18 11:50] VITALS: BP 140/73
[2017-10-18 13:00] VITALS: BP 132/73
[2017-10-18 17:00] VITALS: BP 151/86
[2017-10-18] MEDS: SULFAMETHOX W/TRIMETH(800/160MG) DS TAB PO SCH (21:31)
[2017-10-18 22:00] VITALS: BP 137/69
[2017-10-19] MEDS: SOD CHL 0.45% WITH 20MEQ KCL 1,000 ML IV SCH ×2 (01:02→19:45)
[2017-10-19 05:00] VITALS: BP 124/72
[2017-10-19] MEDS: InsuLIN REG 1unit/0.01ml Soln (100units/ml) SC SCH ×3 (05:29→17:38)
[2017-10-19] MEDS: ACCU-CHEK COMFORT CURVE STRIP VI SCH ×3 (05:29→17:39)
[2017-10-19] MEDS: ALBUTEROL SULF 2.5 MG/0.5ML(0.5%) NEB SOLN NEB SCH ×2 (06:23→20:00)
[2017-10-19] MEDS: IPRATROPIUM BROM 0.5 MG/2.5ML INH SOL NEB SCH ×2 (06:23→20:00)
[2017-10-19 06:43] LABS: Hematocrit 26.5 % (41.0-53.0); Mean Corpuscular Hemoglobin 32.9 pg (28.0-32.0); Mean Corpuscular Volume 96.7 fL (80.0-100.0); Platelet Count (auto) 113 10^3/uL (140-450); Red Blood Cells 2.74 10^6/uL (4.5-5.90); Red Cell Distribution Width 17.1 % (11.8-14.3); White Blood Cell 5.3 10^3/uL (4.4-10.8)
[2017-10-19 07:01] LABS: Albumin 2.6 g/dL (3.4-5.0); Calcium 8.2 mg/dL (8.5-10.1); Potassium 3.8 mmol/L (3.5-5.1)
[2017-10-19 07:03] LABS: BUN/Creatinine Ratio 11.2
[2017-10-19 07:05] LABS: Bilirubin, Total 0.7 mg/dL (0.2-1.0)
[2017-10-19 07:07] LABS: Band Neutrophils % (manual) 0; Basophils % (manual) 0 (0.0-2.0); Blast Cells 0; Eosinophils % (manual) 0 (0-7); Metamyelocytes % 0; Myelocytes % 0; Promyelocytes % 0; Reactive Lymphocytes 0
[2017-10-19 09:00] VITALS: BP 141/74
[2017-10-19 10:03] LABS: Lymphocytes % (manual) 25 (10.0-50.0); Monocytes % (manual) 21 (0-12)
[2017-10-19] MEDS: MICAFUNGIN SODIUM 100 MG in SODIUM CHL 0.9% 100 ML IV SCH (10:43)
[2017-10-19] MEDS: ENOXAPARIN SOD 30 MG/0.3 ML SYRINGE SC SCH (10:43)
[2017-10-19] MEDS: PANTOPRAZOLE 40 MG/10 ML VIAL IV SCH (10:43)
[2017-10-19] MEDS: SULFAMETHOX W/TRIMETH(800/160MG) DS TAB PO SCH ×2 (10:44→22:28)
[2017-10-19] MEDS ORDERED: INSULIN LANTUS (GLARGINE) 1 /0.01ml (100units/ml) SC ONE (12:15)
[2017-10-19 13:00] VITALS: BP 123/64
[2017-10-19 17:00] VITALS: BP 137/84
[2017-10-19 22:00] VITALS: BP 136/74
[2017-10-19] MEDS ORDERED: INSULIN LANTUS (GLARGINE) 1 /0.01ml (100units/ml) SC SCH (22:00)
[2017-10-19 23:16] VITALS: BP 137/84
[2017-10-20] MEDS: IPRATROPIUM BROM 0.5 MG/2.5ML INH SOL NEB SCH ×3 (01:31→13:35)
[2017-10-20] MEDS: ALBUTEROL SULF 2.5 MG/0.5ML(0.5%) NEB SOLN NEB SCH ×3 (01:31→13:35)
[2017-10-20 05:00] VITALS: BP 140/81
[2017-10-20] MEDS: ACCU-CHEK COMFORT CURVE STRIP VI SCH ×3 (06:00→11:39)
[2017-10-20] MEDS: InsuLIN REG 1unit/0.01ml Soln (100units/ml) SC SCH ×3 (06:00→11:39)
[2017-10-20 06:34] LABS: BUN/Creatinine Ratio 10.2; Calcium 8.4 mg/dL (8.5-10.1); Phosphorus 2.4 mg/dL (2.5-4.90); Potassium 3.8 mmol/L (3.5-5.1)
[2017-10-20 09:32] VITALS: BP 139/75
[2017-10-20] MEDS: MICAFUNGIN SODIUM 100 MG in SODIUM CHL 0.9% 100 ML IV SCH (09:54)
[2017-10-20] MEDS: ENOXAPARIN SOD 30 MG/0.3 ML SYRINGE SC SCH (09:54)
[2017-10-20] MEDS: SULFAMETHOX W/TRIMETH(800/160MG) DS TAB PO SCH (09:54)
[2017-10-20 12:29] VITALS: BP 139/75
[2017-10-20] MEDS: SOD CHL 0.45% WITH 20MEQ KCL 1,000 ML IV SCH (15:45)
== END 2017-10-20 16:00 | disposition home or self-care (01) | DRG 870 ==
LOC: ER 11:46 → EDUNIT# 11:46 → OVERFLOW 11:47 → ICU WEST 21:30 → DOU IN ICU 10-12 14:07 → EAST 10-18 12:53
PROVIDERS: ADMIT Internal Medicine; ATTEND Internal Medicine
PROC: 5A1955Z Respiratory Ventilation, Greater than 96 Consecutive Hours (ICD-10-PCS; principal; 2017-10-02)
PROC: 0BH17EZ Insertion of Endotracheal Airway into Trachea, Via Natural or Artificial Opening (ICD-10-PCS; 2017-10-02)
PROC: 02HV33Z Insertion of Infusion Device into Superior Vena Cava, Percutaneous Approach (ICD-10-PCS; 2017-10-02)
PROC: 5A09357 Assistance with Respiratory Ventilation, Less than 24 Consecutive Hours, Continuous Positive Airway Pressure (ICD-10-PCS; 2017-10-13)
DX: A41.9 Sepsis, unspecified organism (principal); J96.21 Acute and chronic respiratory failure with hypoxia; I21.A1 Myocardial infarction type 2; J16.8 Pneumonia due to other specified infectious organisms; J15.6 Pneumonia due to other Gram-negative bacteria; N17.0 Acute kidney failure with tubular necrosis; R65.21 Severe sepsis with septic shock; E44.0 Moderate protein-calorie malnutrition; B49 Unspecified mycosis; D69.6 Thrombocytopenia, unspecified; G93.41 Metabolic encephalopathy; I50.31 Acute diastolic (congestive) heart failure; N18.4 Chronic kidney disease, stage 4 (severe); I13.0 Hypertensive heart and chronic kidney disease with heart failure and stage 1 through stage 4 chronic kidney disease, or unspecified chronic kidney disease; Z66 Do not resuscitate; E11.21 Type 2 diabetes mellitus with diabetic nephropathy; E87.6 Hypokalemia; M17.0 Bilateral primary osteoarthritis of knee; N40.0 Benign prostatic hyperplasia without lower urinary tract symptoms; E03.9 Hypothyroidism, unspecified; E11.22 Type 2 diabetes mellitus with diabetic chronic kidney disease; M19.90 Unspecified osteoarthritis, unspecified site; K82.8 Other specified diseases of gallbladder; R32 Unspecified urinary incontinence; Y92.009 Unspecified place in unspecified non-institutional (private) residence as the place of occurrence of the external cause; Z79.84 Long term (current) use of oral hypoglycemic drugs; Z79.899 Other long term (current) drug therapy; Z68.25 Body mass index [BMI] 25.0-25.9, adult
CPT/HCPCS: 31500; 36415; 36556; 36600; 51702; 70450; 71045; 74018; 74176; 80048; 80053; 80061; 80202; 81001; 82150; 82306; 82378; 82550; 82570; 82805; 82962; 83036; 83605; 83615; 83690; 83735; 83880; 83970; 84100; 84300; 84443; 84484; 84550; 85007; 85014; 85018; 85025; 85027; 85610; 85730; 87040; 87070; 87077; 87081; 87086; 87186; 87205; 92610; 93005; 93306; 93970; 94002; 94003; 94640; 94660; 96365; 96367; 96375; 97110; 97116; 97163; 97530; 99291; A4615; C9113; J1450; J1815; J2248; J2250; J2270; J2543; J3480; J3490; J7042; J7060

== ENCOUNTER 2019-02-03 17:32 | Inpatient (IN) | payer OTHER, MEDICAID ==
[~2019-02-03] VITALS: Ht 175.3 cm; Wt 90.4 kg
[2019-02-03] VITALS (8 sets, daily range): BP systolic 77–101; BP diastolic 40–65
[~2019-02-03 17:32] MED LIST changes: +AMLO10TA13 PO; -ETOMIDATE (2MG/ML) 20ML VIAL IV ONE; +FURO40TA4 PO; +LEV50T PO
[2019-02-03] MEDS ORDERED: SODIUM CHLORIDE 0.9% 1,000 ML IVB ONE (18:03)
[2019-02-03] MEDS ORDERED: ACETAMINOPHEN 325 MG TAB PO ONE (18:15)
[2019-02-03 18:18] LABS: Urine Bacteria NONE SEEN /hpf (None Seen); Urine Blood Negative /uL (Negative); Urine Mucus FEW (None Seen); Urine Specific Gravity 1.013 (1.001-1.035); Urine WBC 1 /hpf (0 - 3)
[2019-02-03 18:31] LABS: White Blood Cell 5.4 10^3/uL (4.4-10.8)
[2019-02-03 18:32] LABS: Hematocrit 29.2 % (41.0-53.0); Hemoglobin 9.6 g/dL (13.5-17.5); Mean Corpuscular Hemoglobin 32.9 pg (28.0-32.0); Mean Corpuscular Volume 99.7 fL (80.0-100.0); Platelet Count (auto) 52 10^3/uL (140-450); Red Blood Cells 2.92 10^6/uL (4.5-5.90); Red Cell Distribution Width 17.6 % (11.8-14.3)
[2019-02-03 18:42] LABS: Basophils % (manual) 0 (0.0-2.0); Blast Cells 0; Eosinophils % (manual) 0 (0-7); Myelocytes % 0; Promyelocytes % 0; Reactive Lymphocytes 0
[2019-02-03 18:43] LABS: INR 1.06 (0.9-1.15); Partial Thromboplastin Time 28.3 sec (23.64-32.05)
[2019-02-03 18:45] LABS: Magnesium 2.2 mg/dL (1.6-2.6)
[2019-02-03 18:49] LABS: Albumin 3.8 g/dL (3.4-5.0); Anion Gap 11 (5-15); Blood Urea Nitrogen 29 mg/dL (7-18); Calcium 8.4 mg/dL (8.5-10.1); Carbon Dioxide 21 mmol/L (21-32); Chloride 100 mmol/L (98-107); Glucose 193 mg/dL (74-106); Potassium 4.4 mmol/L (3.5-5.1); Sodium 132 mmol/L (136-145)
[2019-02-03 18:51] LABS: BUN/Creatinine Ratio 16.7; GFR African American 48 mL/min; GFR Non-African American 39 mL/min
[2019-02-03 18:55] LABS: Lactic Acid w/Reflex 3.4 mmol/L (0.4-2.0)
[2019-02-03 18:56] LABS: Alanine Aminotransferase 179 U/L (16-61); Alkaline Phosphatase 273 U/L (45-117); Aspartate Aminotransferase 228 U/L (15-37); Total Protein 7.9 g/dL (6.4-8.2)
[2019-02-03 19:01] LABS: Band Neutrophils % (manual) 20; Lymphocytes % (manual) 15 (10.0-50.0); Metamyelocytes % 2; Monocytes % (manual) 18 (0-12)
[2019-02-03] MEDS ORDERED: ETOMIDATE (2MG/ML) 20ML VIAL IV ONE (19:15)
[2019-02-03] MEDS ORDERED: OCTREOTIDE ACETATE 500 MCG in SODIUM CHL 0.9% 99 ML IV SCH (19:15)
[2019-02-03] MEDS ORDERED: SUCCINYLCHOLINE CHLORIDE 20 MG/ML 10ML VIAL IV ONE (19:15)
[2019-02-03] MEDS ORDERED: PANTOPRAZOLE 80 MG in SODIUM CHL 0.9% 60 ML IV ONE ×4 (19:15)
[2019-02-03] MEDS ORDERED: PANTOPRAZOLE 40 MG/10 ML VIAL INJ IV ONE (19:15)
[2019-02-03] MEDS: OCTREOTIDE ACETATE 500 MCG in SODIUM CHL 0.9% 99 ML IV SCH (19:53)
[2019-02-03] MEDS ORDERED: MIDAZOLAM DRIP 50 mg/50mL 50 ML IV ONE (19:57)
[2019-02-03] MEDS ORDERED: ONDANSETRON HCL 4 MG/2 ML VIAL IV ONE (20:00)
[2019-02-03] MEDS ORDERED: ACETAMINOPHEN 650 MG RECT SUPP PR ONE ×2 (20:15→20:30)
[2019-02-03] MEDS: MIDAZOLAM DRIP 50 mg/50mL 50 ML IV SCH (20:23)
[2019-02-03] MEDS ORDERED: cefTRIAXone 1GM/50ML D5W 50 ML IV ONE (20:30)
[2019-02-03] MEDS: fentaNYL Drip 2500mCg/250mlNS 250 ML IV SCH (20:50)
[2019-02-03] MEDS ORDERED: NOREPINEPHRINE 8 MG/250ML KIT 250 ML IV SCH (21:05)
[2019-02-03] MEDS ORDERED: ACETAMINOPHEN 650 MG RECT SUPP PR PRN (21:15)
[2019-02-03] MEDS ORDERED: DEXTROSE (50%) 50ML SYRG IV PRN (21:15)
--- NOTE | 2019-02-03 21:54 | NUR ---
Respiratory note: TRANSPORTED PT FROM ER TO CT TO ICU 101 WITHOUT INCIDENT. PT TRANSPORTED ON TRANSPORT VENT, SAME SETTINGS. FIO2 DECREASED TO 60%, PT TOLERATING WELL. VENT IS PLUGGED INTO RED OUTLET, ALARMS ON AND AUDIBLE. RNS REMAIN AT BEDSIDE.
[2019-02-03] MEDS ORDERED: ONDANSETRON HCL 4 MG/2 ML VIAL IV PRN (23:45)
[2019-02-03] MEDS ORDERED: VANCOMYCIN PER PHARMACY 0 MG IV SCH (23:45)
[2019-02-04] VITALS (92 sets, daily range): BP systolic 66–121; BP diastolic 34–96
[2019-02-04] MEDS ORDERED: SODIUM CHLORIDE 0.9% 1,000 ML IV SCH
--- NOTE | 2019-02-04 00:03 | NUR ---
DR. GOODWIN AT BEDSIDE AND PT. IS DESATING TO 85%; DR. GOODWIN INCREASED PEEP TO 8 ANDF SATS WENT UP TO 93%; WILL CONT. TO MONITOR.
[2019-02-04 00:17] LABS: Lactic Acid w/Reflex 4.1 mmol/L (0.4-2.0)
--- NOTE | 2019-02-04 00:28 | NUR ---
BLADDER SCAN PERFORMED TO CHECK FOR ANY BLADDER RETENTION NO NEW URINE OUTPUT FOR ME SINCE ARRIVING TO ICU AT 21:53; WILL CONT. TO MONITOR.
--- NOTE | 2019-02-04 00:30 | NUR ---
BLADDER SCAN WAS 0ML; WILL CONT. TO MONITOR.
[2019-02-04] MEDS: ACCU-CHEK COMFORT CURVE STRIP VI SCH ×4 (00:49→17:59)
[2019-02-04] MEDS: InsuLIN REG 1unit/0.01ml Soln (100units/ml) SC SCH ×3 (00:50→12:44)
[2019-02-04] MEDS: PIPERACILLIN-TAZOB 2.25GM 50 ML IV SCH ×4 (00:50→17:59)
[2019-02-04] MEDS ORDERED: VANCOMYCIN 1GM/250ML 250 ML IV SCH (01:00)
[2019-02-04 01:06] LABS: Basophils # (auto) 0.1 uL; Basophils % (auto) 0.2 % (0.0-2.0); Eosinophils # (auto) 0 uL; Hematocrit 29.9 % (41.0-53.0); Hemoglobin 9.2 g/dL (13.5-17.5); Lymphocytes # (auto) 2.3 uL; Lymphocytes % (auto) 7.6 % (10.0-50.0); Mean Corpuscular Hemoglobin 32.1 pg (28.0-32.0); Mean Corpuscular Hgb Conc. 30.9 g/dL (32.0-36.0); Mean Corpuscular Volume 104.1 fL (80.0-100.0); Monocytes # (auto) 4.1 uL; Monocytes % (auto) 13.5 % (0.0-12.0); Neutrophils # (auto) 23.7 uL; Neutrophils % (auto) 78.7 % (37.0-80.0); Nucleated Red Blood Cells % 0.5 %; Platelet Count (auto) 42 10^3/uL (140-450); Red Blood Cells 2.87 10^6/uL (4.5-5.90); Red Cell Distribution Width 18.4 % (11.8-14.3)
[2019-02-04 01:09] LABS: White Blood Cell 30.1 10^3/uL (4.4-10.8)
[2019-02-04] MEDS: ALBUTEROL SULF 2.5 MG/0.5ML(0.5%) NEB SOLN NEB SCH ×6 (02:12→22:00)
[2019-02-04] MEDS: IPRATROPIUM BROM 0.5 MG/2.5ML INH SOL NEB SCH ×6 (02:12→22:00)
--- NOTE | 2019-02-04 02:41 | NUR ---
PLACED PT. ON COOLING BLANKET PT. TEMP= 103 RECTAL; PAGED HOSPITALIST TO SEE IF WANTS TO TRY MOTRIN; WILL CONT. TO MONITOR.
[2019-02-04] MEDS ORDERED: IBUPROFEN 600 MG TAB PO ONE (03:15)
[2019-02-04] MEDS ORDERED: ACETAMINOPHEN IV 1000 MG/100ML (10MG/ML) IV ONE (03:15)
[2019-02-04 04:44] LABS: Mean Corpuscular Volume 103.5 fL (80.0-100.0)
[2019-02-04 04:46] LABS: Hematocrit 30.5 % (41.0-53.0); Mean Corpuscular Hemoglobin 33.8 pg (28.0-32.0); Mean Corpuscular Hgb Conc. 32.6 g/dL (32.0-36.0); Platelet Count (auto) 37 10^3/uL (140-450); Red Blood Cells 2.95 10^6/uL (4.5-5.90)
[2019-02-04 04:50] LABS: White Blood Cell 39.4 10^3/uL (4.4-10.8)
[2019-02-04 04:51] LABS: Basophils % (manual) 0 (0.0-2.0); Blast Cells 0; Eosinophils % (manual) 0 (0-7); Myelocytes % 0; Promyelocytes % 0; Reactive Lymphocytes 0
[2019-02-04] MEDS: OCTREOTIDE ACETATE 500 MCG in SODIUM CHL 0.9% 99 ML IV SCH (05:15)
[2019-02-04 05:24] LABS: Anion Gap 12 (5-15); Carbon Dioxide 16 mmol/L (21-32); Chloride 107 mmol/L (98-107); Potassium 4.9 mmol/L (3.5-5.1); Sodium 135 mmol/L (136-145)
[2019-02-04 05:25] LABS: Alanine Aminotransferase 227 U/L (16-61); Albumin 2.9 g/dL (3.4-5.0); Alkaline Phosphatase 269 U/L (45-117); Aspartate Aminotransferase 232 U/L (15-37); BUN/Creatinine Ratio 13.4; Bilirubin, Total 5.2 mg/dL (0.2-1.0); Blood Urea Nitrogen 32 mg/dL (7-18); Calcium 7.3 mg/dL (8.5-10.1); GFR African American 33 mL/min; GFR Non-African American 27 mL/min; Glucose 100 mg/dL (74-106); Total Protein 6.8 g/dL (6.4-8.2)
[2019-02-04 06:52] LABS: Band Neutrophils % (manual) 18; Lymphocytes % (manual) 10 (10.0-50.0); Metamyelocytes % 2; Monocytes % (manual) 8 (0-12)
--- NOTE | 2019-02-04 07:00 | NUR ---
STARTING PHENYLEPHRINE GTT AT 40MCG PER RX.
[2019-02-04] MEDS ORDERED: PHENYLEPHRINE IV 250 ML IV ONE ×6 (07:03→18:07)
[2019-02-04] MEDS: PHENYLEPHRINE INJ 20 MG in SODIUM CHL 0.9% 250 ML IV SCH ×2 (07:13→15:16)
[2019-02-04] MEDS: NOREPINEPHRINE 8 MG/250ML KIT 250 ML IV SCH ×2 (08:13→23:33)
--- NOTE | 2019-02-04 08:30 | NUR ---
RT NOTE: PAGE SENT OUT FOR CHUNG IN REGARDS TO CRITICAL VALUES ON BLOOD GAS. AWAITING RETURN CALL. RN AWARE OF RESULTS.
--- NOTE | 2019-02-04 08:38 | NUR ---
RT NOTE: VOICE MESSAGE LEFT ON DR GOODWIN CELL REGARDING CRITICAL ABG. AWAITING PHONE CALL.
--- NOTE | 2019-02-04 08:40 | NUR ---
RT NOTE: CALL BACK FROM HOSPITALIST CHUNG. ORDERS GIVEN TO INCREASE RR TO 18 FROM 14 WITH FOLLOW UP ABG IN 1HR. WILL CONTINUE TO MONITOR.
[2019-02-04] MEDS ORDERED: SODIUM BICARBONATE 8.4 % INJ 50ML VIAL IV ONE (09:00)
--- NOTE | 2019-02-04 09:13 | NUR ---
PICC line placement Patient significant other educated on need for PICC line placement. All risks and benefits explained and all questions and concerns addressed prior to procedure. Noted past medical history and allergies with no contraindications. INR and Plt counts within acceptable range. 5 fr PICC line inserted via right brachial vein using [employer]'s [employer] US and Tip Location System. Sterile technique with maximum barrier precautions utilized. Blood return obtained from each of the 3 lumens and each flushed easily with NS using proper technique. PICC secured with Stat-lock; biodisc and occlusive dressing applied. Stat portable chest x-ray obtained for PICC tip placement. *Baseline Arm Circumference 29 cm. Internal length 40 cm. External length 0 cm. PICC lot #[id number] Note: EBL 1.5 ml
[2019-02-04] MEDS ORDERED: LIDOCAINE 1% (LOCAL ANESTH.) PF 5ml SDV ID ONE (09:15)
--- NOTE | 2019-02-04 09:45 | NUR ---
RT NOTE: UNABLE TO DRAW ABG AT THIS TIME DUE TO PROCEDURE IN PROGRESS. WILL RETURN AND DRAW SOON POSSIBLE.
--- NOTE | 2019-02-04 09:50 | NUR ---
Okay to use PICC line Xray completed. Primary RN notified.
[2019-02-04] MEDS: SODIUM BICARBONATE 50ML VIAL 150 ML in D5W 5% 1,000 ML IV SCH ×2 (10:00→21:28)
[2019-02-04] MEDS: SODIUM CHLOR 0.9% PF (SALINE LOCK) 10ML VIAL/SYR IV SCH ×2 (10:09→21:37)
--- NOTE | 2019-02-04 10:25 | NUR ---
RT NOTE: DR PRIDE BEDSIDE WITH RN. ORDERS GIVEN FOR INCREASE IN RR TO 24 WITH ABG TO BE DONE AT NOON. ABG ORDERED FOR 0945 HAS BEEN CANCELED DUE TO NEW CHANGES. RN HANGING BICARB. LUNG SOUNDS CLEAR T/O. WILL CONTINUE TO MONITOR.
--- NOTE | 2019-02-04 10:30 | NUR ---
DR. BAILON AT BEDSIDE: ORDERS GIVEN MD UPDATED ON PT'S CURRENT STATUS, LABS AND ABG FROM THIS AM . VENT SETTINGS CHANGES AT THIS TIME. INCREASED AC RATE TO 24. CONTINUE CARE.
--- NOTE | 2019-02-04 10:45 | NUR ---
MONIKA WILKES AT BEDSIDE: UPDATED RIVER EXPEDITION GUIDE UPDATED ON PT'S DECREASED URINE OUTPUT. CONSULT PLACED FOR RENAL CONSULT. WILL CONTINUE TO MONITOR.
[2019-02-04] MEDS: PANTOPRAZOLE 40 MG/10 ML VIAL INJ IV SCH ×2 (11:00→21:37)
--- NOTE | 2019-02-04 11:30 | NUR ---
WARMING MEASURES IN PLACE AT THIS TIME. CURRENT TEMP 95.9 RECTALLY. BEAR HUGGER PLACED ON PATIENT AND HEAT LAMP REMAINS ON AT THIS TIME. CONTINUE CARE.
--- NOTE | 2019-02-04 12:35 | NUR ---
RT NOTE: CALL OUT FOR DR SPENCER IN REGARDS TO CRITICAL ABG VALUES. AWAITING RETURN CALL.
--- NOTE | 2019-02-04 12:40 | NUR ---
RT NOTE: DR SPENCER AWARE OF ABG RESULTS. NO FURTHER CHANGES ORDERED AT THIS TIME. WILL CONTINUE TO MONITOR.
--- NOTE | 2019-02-04 12:50 | NUR ---
DR. CARLIN AT BEDSIDE UPDATED ON PT'S STATUS. DC'ING OCTREOTIDE GTT AT THIS TIME. GTT STOPPED. CONTINUE CARE.
[2019-02-04] MEDS: VASOPRESSIN 50 UNITS in D5W 5% 247.5 ML IV SCH ×2 (13:00→16:09)
[2019-02-04] MEDS ORDERED: FUROSEMIDE 20 MG/2 ML VIAL IV ONE (13:30)
--- NOTE | 2019-02-04 14:16 | NUR ---
ORDERING PLATELETS CALLED BLOOD BANK. PLATELETS MAY TAKE 2-4 HOURS TO GET FROM [place]. WILL CONTINUE TO MONITOR. WAITING FOR PLATELETS TO GET HERE. CALLED DR. MALIK TO INFORM HIM.
[2019-02-04 14:32] LABS: Anion Gap 16 (5-15); Blood Urea Nitrogen 34 mg/dL (7-18); Calcium 6.7 mg/dL (8.5-10.1); Carbon Dioxide 14 mmol/L (21-32); Chloride 106 mmol/L (98-107); Glucose 163 mg/dL (74-106); Potassium 4.6 mmol/L (3.5-5.1); Sodium 136 mmol/L (136-145)
[2019-02-04 14:34] LABS: BUN/Creatinine Ratio 12.5; GFR African American 29 mL/min; GFR Non-African American 24 mL/min
--- NOTE | 2019-02-04 16:09 | NUR ---
VASOPRESSIN STARTED AT THIS TIME. PATIENT NOW MAX LEVOPHED AND MAX ON FRANCHESKA-SYN GTT'S AT THIS TIME. STARTED GTT AT 0.02 MCG/MIN. CURRENT BP 88/50, HR 115 . WILL TITRATE ACCORDINGLY. NOT TURNING PATIENT AT THIS TIME. DUE TO PATIENT BEING HEMODYNAMICALLY UNSTABLE. OFF LOADING PT'S EXTREMITIES WITH PILLOWS. CONTINUE CARE.
--- NOTE | 2019-02-04 16:36 | NUR ---
HOLD PLATELET TRANSFUSION AT THIS TIME PER DR. MALIK. WILL CHECK TOMORROW WHEN TO GIVEN PLATELET BEFORE DOING INTERVENTIONAL RADIOLOGY PROCEDURE. CONTINUE CARE.
[2019-02-04] MEDS: MIDAZOLAM DRIP 50 mg/50mL 50 ML IV SCH (17:59)
--- NOTE | 2019-02-04 18:19 | NUR ---
WOUND CARE NOTE: IN TO SEE PATIENT FOR SKIN INTEGRITY D/T LOW YAIMA SCORE 10, INTUBATION STATUS. PATIENT WAS ADMITTED TO [facility] WITH DIAGNOSIS OF SEPSIS. PATIENT CURRENTLY RECEIVING COOLING MEASURES, UNSTABLE FOR TURNING CURRENTLY. PER BEDSIDE NURSE, PATIENT HAS NO OPEN/DRAINING WOUNDS, NO AREAS WITH NON BLANCHABLE REDNESS. SKIN/WOUND CARE PLAN IMPLEMENTED. PATIENT WOULD BENEFIT FROM FREQUENT TURN SCHEDULE Q 2 HOURS, PRN CONDITION PERMITS, WITH PRESSURE REDISTRIBUTION USING PILLOWS/WEDGES, BID/PRN APPLICATION WITH MOISTURE BARRIER CREAM, OPTIFOAM GENTLE SACRAL DRESSING PREVENTATIVE, DIETARY CONSULT FOR LOW YAIMA/INTUBATION, CONTINUED MONITORING BY WOUND CARE TEAM. Addendum: 02/04/19 at 1823 by Kamille Cook RN LATE ENTRY, SAW PATIENT AT 11:55 AM TODAY
[2019-02-04] MEDS: PROPOFOL 100 ML IV SCH (19:56)
[2019-02-04] MEDS: fentaNYL Drip 2500mCg/250mlNS 250 ML IV SCH (20:12)
--- NOTE | 2019-02-04 20:12 | NUR ---
PATIENT IS UNAROUSABLE MISTAKENLY,THIS RN CHARTED PATIENT IS ON DEEP SEDATION.
[2019-02-04] MEDS: PHENYLEPHRINE INJ 40 MG in SODIUM CHL 0.9% 250 ML IV SCH (20:23)
[2019-02-05] VITALS (103 sets, daily range): BP systolic 58–130; BP diastolic 30–58
[2019-02-05] MEDS: PIPERACILLIN-TAZOB 2.25GM 50 ML IV SCH ×4 (00:11→17:53)
[2019-02-05] MEDS: PHENYLEPHRINE INJ 40 MG in SODIUM CHL 0.9% 250 ML IV SCH ×5 (00:11→23:47)
[2019-02-05] MEDS: ACCU-CHEK COMFORT CURVE STRIP VI SCH ×3 (00:17→12:00)
[2019-02-05] MEDS: InsuLIN REG 1unit/0.01ml Soln (100units/ml) SC SCH ×4 (00:17→17:55)
[2019-02-05] MEDS: ALBUTEROL SULF 2.5 MG/0.5ML(0.5%) NEB SOLN NEB SCH ×6 (02:00→22:01)
[2019-02-05] MEDS: IPRATROPIUM BROM 0.5 MG/2.5ML INH SOL NEB SCH ×7 (02:00→22:01)
[2019-02-05] MEDS: NOREPINEPHRINE 8 MG/250ML KIT 250 ML IV SCH ×3 (03:42→23:47)
--- NOTE | 2019-02-05 04:00 | NUR ---
Patient bathe/linen change Patient given complete chlorhexidine bath. Skin integrity assessed for any changes. Linens changed. Patient repositioned for comfort.
--- NOTE | 2019-02-05 05:41 | NUR ---
Respiratory note: MED NEB TX HELD BECAUSE OF TACHYCARDIA. HR CURRENTLY 120. RN AT BEDSIDE AND AWARE.
[2019-02-05 06:40] LABS: Hematocrit 26.4 % (41.0-53.0); Hemoglobin 8.1 g/dL (13.5-17.5); INR 2.34 (0.9-1.15); Mean Corpuscular Hemoglobin 31.4 pg (28.0-32.0); Mean Corpuscular Hgb Conc. 30.5 g/dL (32.0-36.0); Mean Corpuscular Volume 102.8 fL (80.0-100.0); Partial Thromboplastin Time 45.8 sec (23.64-32.05); Platelet Count (auto) 55 10^3/uL (140-450); Red Blood Cells 2.57 10^6/uL (4.5-5.90); Red Cell Distribution Width 18.5 % (11.8-14.3)
[2019-02-05 06:58] LABS: Potassium 4.4 mmol/L (3.5-5.1)
--- NOTE | 2019-02-05 07:00 | NUR ---
Respiratory note: HOSPITALIST PAGED REGARDING CRITICAL PH VALUE ON ABG.
[2019-02-05 07:03] LABS: Albumin 2.3 g/dL (3.4-5.0); BUN/Creatinine Ratio 11.8; Bilirubin, Total 6.6 mg/dL (0.2-1.0); Calcium 6.1 mg/dL (8.5-10.1); Total Protein 5.6 g/dL (6.4-8.2)
[2019-02-05 07:17] LABS: White Blood Cell 78.8 10^3/uL (4.4-10.8)
[2019-02-05 07:18] LABS: Basophils % (manual) 0 (0.0-2.0); Blast Cells 0; Eosinophils % (manual) 0 (0-7); Metamyelocytes % 0; Reactive Lymphocytes 0
--- NOTE | 2019-02-05 07:29 | NUR ---
Respiratory note: HOSPITALIST ARABELLA LAWRENCE CALLED BACK REGARDING CRITICAL ABG RESULTS. NO NEW ORDERS RECEIVED.
[2019-02-05 08:11] LABS: Band Neutrophils % (manual) 18; Lymphocytes % (manual) 3 (10.0-50.0); Monocytes % (manual) 4 (0-12); Myelocytes % 2; Promyelocytes % 1
[2019-02-05] MEDS: SODIUM BICARBONATE 50ML VIAL 150 ML in D5W 5% 1,000 ML IV SCH ×2 (08:45→19:30)
--- NOTE | 2019-02-05 08:45 | NUR ---
FAMILY Patients daughter and grand-daughter at bedside, updated on patient condition.
--- NOTE | 2019-02-05 09:00 | NUR ---
RADIOLOGY NURSE Radiology nurse Uma at bedside and spoke to daughter and granddaughter with this RN to translate for consent for procedure.
[2019-02-05] MEDS ORDERED: SODIUM BICARBONATE 8.4 % INJ 50ML VIAL IV ONE (09:30)
[2019-02-05] MEDS ORDERED: LIDOCAINE 2% (LOCAL ANESTH.) PF 5ml SDV ONE (09:32)
[2019-02-05] MEDS: PANTOPRAZOLE 40 MG/10 ML VIAL INJ IV SCH ×2 (09:34→21:59)
[2019-02-05] MEDS: SODIUM CHLOR 0.9% PF (SALINE LOCK) 10ML VIAL/SYR IV SCH ×2 (09:34→21:59)
--- NOTE | 2019-02-05 10:00 | NUR ---
RESPIRATORY/MD RT Perez at bedside and made vent changes per Dr. Matteo Sen, whom is at bedside. Will continue to monitor patient closely.
--- NOTE | 2019-02-05 10:00 | NUR ---
Respiratory note: VENT CHANGES MADE, NEW SETTINGS: RR 16, VT 600, PEEP 6, 60% FIO2. CHANGES HAVE BEEN MADE PER DR. HERNANDEZ. RN AT BEDSIDE AND AWARE. ABG TO BE DRAWN IN 4 HOURS.
--- NOTE | 2019-02-05 10:15 | NUR ---
PROCEDURE Dr. Kinsey at bedside to perform procedure per Dr. Bowden : Gallbladder billiary drainage under ultrasound. Patient tolerated well.
--- NOTE | 2019-02-05 13:15 | NUR ---
CAROLYN Bowden at bedside updated on patient condition with new orders, MD to input into system. MD spoke to daughter and grand daughter regarding plan of care. MD answered questions and concerns.
[2019-02-05] MEDS ORDERED: PHYTONADIONE (VIT K)10 MG/ML 1ML VIAL SUBCUT ONE (13:30)
--- NOTE | 2019-02-05 13:34 | NUR ---
RESPIRATORY/MD RT Perez at bedside and changed vent settings per Dr. Bowden.
--- NOTE | 2019-02-05 13:34 | NUR ---
Respiratory note: NEW VENT SETTINGS PER DR. KANG: AC RR 20, VT 600, PEEP 8, 60% FIO2. ABG TO BE DRAWN IN AM.
--- NOTE | 2019-02-05 14:46 | NUR ---
Nutrition consult/assessment Notes please see attached link for complete assessment Est. Needs BW 77 [id number] kcal (25-30 kcal/kgBW), 62-77 gms pro (0.8-1.0 gms/kgBW r/t elev RFT). Will continue to monitor pertinent labs and reassess nutrient need prn Addendum: 02/05/19 at [address] Amended: Links added.
--- NOTE | 2019-02-05 15:00 | NUR ---
TEMPERATURE Patients temperature 99.9 rectally, cooling measures started: turned on cooling blanket. Will continue to monitor temperature.
--- NOTE | 2019-02-05 17:00 | NUR ---
Respiratory note: FIO2 INCREASED TO 70%. POX CURRENTLY 92%.
--- NOTE | 2019-02-05 18:00 | NUR ---
MD Dr. Nicholas paged and left message on voicemail informing MD that patient would like to leave AMA and most likely will be leaving AMA. Addendum: 02/06/19 at 3822 by KEITH TORREZ RN Wrong patient
--- NOTE | 2019-02-05 19:00 | NUR ---
OPENING NOTE ASSUMED CARE OF PATIENT AT THIS TIME. REPORT RECEIVED FROM DAY SHIFT RN. POC REVIEWED. HEAD TO TOE ASSESSMENT COMPLETE, SEE INTERVENTION SPREADSHEET FOR COMPLETE DETAILS. RECEIVED PT INTUBATED AND SEDATED. RECEIVED PT ON LEVO AT 30 MCG, FRANCHESKA AT 180 MCG AND VASO AT 0.02 UNITS. RECEIVED PT ON D5 WITH 3 AMPS BICARB. HR 120'S, BP STABLE. TEMP STABLE. SET RR. IV SITES BENIGN. FAUSTIN CATHETER DRAINING TO GRAVITY. RECEIVED PT WITH NEW PLACEMENT BILIARY DRAIN. BED LOCKED AND IN LOWEST POSITION, SAFETY PRECAUTIONS IN PLACE. SUCTION AND BVM AT BEDSIDE. WILL MONITOR PT CAREFULLY. Addendum: 02/05/19 at 2314 by ESTEFANIA CROFT RN RT NGT TO LIS
--- NOTE | 2019-02-05 19:20 | NUR ---
AMA Patient signed AMA. Addendum: 02/05/19 at 1929 by KEITH TORREZ RN Patient alert and oriented X 4 with at bedside. Lat vital signs Blood pressure 163/79, Heart rate 119, Respirations 29, O2 sats 96% on room air. Addendum: 02/06/19 at 0821 by KEITH TORREZ RN Wrong patient
[2019-02-05] MEDS: MIDAZOLAM DRIP 50 mg/50mL 50 ML IV SCH (19:56)
[2019-02-05] MEDS: PROPOFOL 100 ML IV SCH (19:56)
--- NOTE | 2019-02-05 20:16 | NUR ---
DAUGHTER AT BEDSIDE. UPDATED ON POC.
[2019-02-05] MEDS: fentaNYL Drip 2500mCg/250mlNS 250 ML IV SCH (20:34)
[2019-02-06] VITALS (104 sets, daily range): BP systolic 56–132; BP diastolic 34–65
[2019-02-06] MEDS: PIPERACILLIN-TAZOB 2.25GM 50 ML IV SCH ×5 (00:03→23:55)
[2019-02-06] MEDS: IPRATROPIUM BROM 0.5 MG/2.5ML INH SOL NEB SCH ×6 (02:00→22:27)
[2019-02-06] MEDS: ALBUTEROL SULF 2.5 MG/0.5ML(0.5%) NEB SOLN NEB SCH ×6 (02:00→22:27)
[2019-02-06] MEDS: PHENYLEPHRINE INJ 40 MG in SODIUM CHL 0.9% 250 ML IV SCH ×2 (04:28→08:56)
[2019-02-06] MEDS: SODIUM BICARBONATE 50ML VIAL 150 ML in D5W 5% 1,000 ML IV SCH (04:28)
[2019-02-06 04:32] LABS: Hemoglobin 7.2 g/dL (13.5-17.5); Red Blood Cells 2.27 10^6/uL (4.5-5.90)
[2019-02-06 04:36] LABS: Hematocrit 22.2 % (41.0-53.0); Mean Corpuscular Hemoglobin 31.6 pg (28.0-32.0); Mean Corpuscular Hgb Conc. 32.4 g/dL (32.0-36.0); Mean Corpuscular Volume 97.6 fL (80.0-100.0); Platelet Count (auto) 44 10^3/uL (140-450); Red Cell Distribution Width 17.9 % (11.8-14.3)
--- NOTE | 2019-02-06 04:56 | NUR ---
BED BATH/LINEN CHANGE PT TOLERATED WELL. SKIN ASSESSED FOR INTEGRITY CHANGES, NONE NOTED. PT SMALL AMOUNT OF GREEN/GREYISH COLORED STOOL. SAMPLE COLLECTED FOR OCCULT SAMPLE. SAFETY PRECAUTIONS MAINTAINED. SUCTION TUBING AND CANISTER CHANGED AT THIS TIME.
[2019-02-06 04:57] LABS: White Blood Cell 53.8 10^3/uL (4.4-10.8)
[2019-02-06 04:58] LABS: Basophils % (manual) 0 (0.0-2.0); Blast Cells 0; Eosinophils % (manual) 0 (0-7); INR 2.36 (0.9-1.15); Myelocytes % 0; Promyelocytes % 0; Reactive Lymphocytes 0
[2019-02-06 05:01] LABS: Albumin 1.4 g/dL (3.4-5.0)
[2019-02-06 05:12] LABS: BUN/Creatinine Ratio 11.9; Calcium 5.2 mg/dL (8.5-10.1)
--- NOTE | 2019-02-06 05:18 | NUR ---
HOSPITALIST PAGED AT THIS TIME REGARDING CALCIUM, 5.2.
[2019-02-06 05:20] LABS: Bilirubin, Total 6.6 mg/dL (0.2-1.0); Total Protein 4.5 g/dL (6.4-8.2)
--- NOTE | 2019-02-06 05:32 | NUR ---
ORDERS RECEIVED FOR 1 GRAM OF CALCIUM TO BE GIVEN IV.
[2019-02-06 05:42] LABS: Band Neutrophils % (manual) 56; Lymphocytes % (manual) 2 (10.0-50.0); Metamyelocytes % 2; Monocytes % (manual) 7 (0-12)
[2019-02-06] MEDS ORDERED: CALCIUM GLUC 4.65meq/50ml D5AE 50 ML IV ONE (05:45)
[2019-02-06] MEDS: ACCU-CHEK COMFORT CURVE STRIP VI SCH ×5 (06:01→23:55)
[2019-02-06] MEDS: InsuLIN REG 1unit/0.01ml Soln (100units/ml) SC SCH ×5 (06:01→23:55)
[2019-02-06] MEDS ORDERED: PHENYLEPHRINE HCL 10 MG/ML VL ONE (06:48)
--- NOTE | 2019-02-06 08:20 | NUR ---
FAMILY Family at bedside updated on patient condition with no new orders received. Addendum: 02/06/19 at 0823 by KEITH TORREZ RN Family at bedside updated on patient condition with questions answered.
--- NOTE | 2019-02-06 09:05 | NUR ---
CONSULTATION Krystyna, munitions worker, called Dr. Ibrahim's office and left message with office personnel regarding consult placed on 02/04/2019 and MD has not come by to see patient.
[2019-02-06] MEDS: PANTOPRAZOLE 40 MG/10 ML VIAL INJ IV SCH ×2 (10:22→22:09)
[2019-02-06] MEDS: PHYTONADIONE (VIT K)10 MG/ML 1ML VIAL SUBCUT SCH (10:22)
[2019-02-06] MEDS: SODIUM CHLOR 0.9% PF (SALINE LOCK) 10ML VIAL/SYR IV SCH ×2 (10:22→22:09)
--- NOTE | 2019-02-06 11:15 | NUR ---
MD Dr. Bowden at bedside updated on patient condition with new orders received, MD to input into system. MD aware that Dr. Ibrahim has not come by to see patient and that this RN has already re-consulted her. MD spoke to patients daughter, whom is at bedside, regarding plan of care and questions answered by MD.
[2019-02-06] MEDS ORDERED: Glucerna 1.2 Cal 1Liter BOTTLE GT SCH (11:30)
[2019-02-06] MEDS ORDERED: SODIUM CHLORIDE 0.9% 1,000 ML IV SCH (11:30)
[2019-02-06] MEDS ORDERED: FUROSEMIDE INJECTION 250 MG in D5W 5% 225 ML IV SCH (11:30)
[2019-02-06] MEDS: ALBUMIN 25% 50 ML IV SCH ×2 (11:47→20:17)
--- NOTE | 2019-02-06 12:08 | NUR ---
MD Dr. Acosta at bedside updated on patient condition with no new orders. MD spoke to granddaughter regarding plan of care and questions answered by MD.
[2019-02-06] MEDS: FUROSEMIDE INJECTION 250 MG in D5W 5% 225 ML IV SCH (16:15)
--- NOTE | 2019-02-06 16:20 | NUR ---
MD Dr. Ibrahim at bedside updated on patient condition with new orders, MD to input into system. MD spoke to patients daughter, whom is at bedside, regarding plan of care and questions/concerns answered by MD.
[2019-02-06] MEDS: PHENYLEPHRINE INJ 80 MG in SODIUM CHL 0.9% 250 ML IV SCH (17:00)
[2019-02-06] MEDS: NOREPINEPHRINE BITARTRATE 32 MG in D5W 5% 218 ML IV SCH (17:28)
--- NOTE | 2019-02-06 18:15 | NUR ---
RESPIRATORY RT at bedside and decreased FIO2 down to 50% sating 100%. Will continue to monitor patient closely.
--- NOTE | 2019-02-06 19:00 | NUR ---
OPENING NOTE ASSUMED CARE OF PATIENT AT THIS TIME. REPORT RECEIVED FROM DAY SHIFT RN. POC REVIEWED. HEAD TO TOE ASSESSMENT COMPLETE, SEE INTERVENTION SPREADSHEET FOR COMPLETE DETAILS. RECEIVED PT INTUBATED AND SEDATED. RECEIVED PT ON LEVO AT 16 MCG, FRANCHESKA AT 80 MCG AND VASO AT 0.02 UNITS. VSS. IV SITES BENIGN. NGT TO LIS. FAUSTIN CATHETER DRAINING TO GRAVITY. RECEIVED PT WITH BILIARY DRAIN. BED LOCKED AND IN LOWEST POSITION, SAFETY PRECAUTIONS IN PLACE. SUCTION AND BVM AT BEDSIDE. WILL MONITOR PT CAREFULLY.
[2019-02-06] MEDS: PROPOFOL 100 ML IV SCH (19:56)
[2019-02-06] MEDS: MIDAZOLAM DRIP 50 mg/50mL 50 ML IV SCH (19:56)
--- NOTE | 2019-02-06 20:15 | NUR ---
GRANDDAUGHTER AT BEDSIDE. UPDATED ON POC. VERBALIZE UNDERSTANDING.
--- NOTE | 2019-02-06 20:33 | NUR ---
TF STARTED AT THIS TIME PER MD ORDER. STARING RATE 10 MLS/HR. WILL ASSESS FOR PT TOLERANCE AND ADVANCE RATE PATIENT TOLERATES.
--- NOTE | 2019-02-06 21:56 | NUR ---
BATHING/ELIMINATION PT HAD MODERATE BM. GREEN/TINSLEY LINA TEXTURE WITH DARK RED BLOOD SATURATION. PT CLEANED. SKIN/JESIKA CARE RENDERED. PT NOTED TO HAVE PENILE AND SCROTAL EDEMA. SKIN REMAINS INTACT. PT REPOSITIONED FOR SAFETY AND COMFORT. SAFETY PRECAUTIONS MAINTAINED. PT TOLERATED WELL. WILL CONTINUE WITH CARE.
[2019-02-07] VITALS (81 sets, daily range): BP systolic 77–124; BP diastolic 43–71
--- NOTE | 2019-02-07 00:15 | NUR ---
RESIDUALS ASPIRATED 20 MLS OF TF. INCREASE RATE TO 15 MLS/HR. WILL CONTINUE TO ASSESS FOR PT TOLERANCE.
[2019-02-07] MEDS: IPRATROPIUM BROM 0.5 MG/2.5ML INH SOL NEB SCH ×6 (02:04→22:09)
[2019-02-07] MEDS: ALBUTEROL SULF 2.5 MG/0.5ML(0.5%) NEB SOLN NEB SCH ×6 (02:04→22:09)
--- NOTE | 2019-02-07 03:11 | NUR ---
a-fib at 0222, pt went into A-fib with a rate of 100-120's. All other VS stable. Strip printed and placed in patient chart.
[2019-02-07] MEDS: ALBUMIN 25% 50 ML IV SCH (03:16)
--- NOTE | 2019-02-07 03:20 | NUR ---
hospitalist notified of status change. Orders received for BNP and magnesium lab levels.
[2019-02-07] MEDS: VASOPRESSIN 50 UNITS in D5W 5% 247.5 ML IV SCH ×2 (03:22→13:00)
[2019-02-07] MEDS: fentaNYL Drip 2500mCg/250mlNS 250 ML IV SCH ×2 (03:22→20:34)
[2019-02-07] MEDS: FUROSEMIDE INJECTION 250 MG in D5W 5% 225 ML IV SCH ×2 (03:22→15:00)
[2019-02-07 03:53] LABS: Hematocrit 21.9 % (41.0-53.0); Hemoglobin 7.4 g/dL (13.5-17.5); Platelet Count (auto) 40 10^3/uL (140-450); Red Blood Cells 2.32 10^6/uL (4.5-5.90)
[2019-02-07 03:55] LABS: Mean Corpuscular Volume 94.2 fL (80.0-100.0); Red Cell Distribution Width 17.1 % (11.8-14.3)
[2019-02-07 04:13] LABS: White Blood Cell 34.8 10^3/uL (4.4-10.8)
[2019-02-07 04:14] LABS: Basophils % (manual) 0 (0.0-2.0); Blast Cells 0; Eosinophils % (manual) 0 (0-7); Myelocytes % 0; Promyelocytes % 0; Reactive Lymphocytes 0
--- NOTE | 2019-02-07 04:15 | NUR ---
Residuals Pt has 35 mls of residuals at rate of 15 mls/hr. Continue tf at 15 mls/hr at this time.
[2019-02-07 04:16] LABS: Albumin 3.6 g/dL (3.4-5.0)
[2019-02-07 04:18] LABS: BUN/Creatinine Ratio 11.9
[2019-02-07 04:21] LABS: Bilirubin, Total 7.6 mg/dL (0.2-1.0); Total Protein 6.2 g/dL (6.4-8.2)
--- NOTE | 2019-02-07 04:23 | NUR ---
bathing/elimination/linen change Pt had large, green/quintanilla bm. Pt cleaned and korey care rendered. Partial linen change and bed bath given. Pt tolerated well. Suction tubing and canister changed at this time. Safety precautions maintained.
--- NOTE | 2019-02-07 04:56 | NUR ---
critical labs Hospitalist notified of critical calcium, 5.0 and low magnesium 1.4. Orders received to give 2 grams of calcium and 2 grams of magnesium. Will carry out orders as received.
[2019-02-07] MEDS ORDERED: CALCIUM GLUC 4.65meq/50ml D5AE 50 ML IV ONE ×3 (05:00→06:00)
[2019-02-07] MEDS ORDERED: CALCIUM GLUC 4.65 MEQ/10ML 0 ML IV ONE (05:00)
[2019-02-07] MEDS ORDERED: MAGNESIUM SULFATE 1GM/100ML 100 ML IV ONE (05:00)
[2019-02-07] MEDS: MAGNESIUM SULFATE 1GM/100ML 100 ML IV SCH ×2 (05:10→06:26)
[2019-02-07 05:11] LABS: INR 1.51 (0.9-1.15); Partial Thromboplastin Time 49.9 sec (23.64-32.05)
--- NOTE | 2019-02-07 05:15 | NUR ---
BATHING/ELIMINATION PT HAD MODERATE BM. GREEN/TINSLEY LINA TEXTURE WITH DARK RED BLOOD SATURATION. PT CLEANED. SKIN/JESIKA CARE RENDERED. PT REPOSITIONED FOR SAFETY AND COMFORT. SAFETY PRECAUTIONS MAINTAINED. PT TOLERATED WELL. WILL CONTINUE WITH CARE. Addendum: 02/07/19 at 0644 by ESTEFANIA CROFT RN pt has spots of bright red blood in stool.
[2019-02-07 06:19] LABS: Band Neutrophils % (manual) 49; Lymphocytes % (manual) 5 (10.0-50.0); Metamyelocytes % 2; Monocytes % (manual) 8 (0-12)
[2019-02-07] MEDS: ACCU-CHEK COMFORT CURVE STRIP VI SCH ×3 (06:26→18:55)
[2019-02-07] MEDS: PIPERACILLIN-TAZOB 2.25GM 50 ML IV SCH (06:26)
[2019-02-07] MEDS: InsuLIN REG 1unit/0.01ml Soln (100units/ml) SC SCH ×4 (06:27→18:30)
--- NOTE | 2019-02-07 06:36 | NUR ---
Sinus rhythm Pt returned to [facility] - [facility] at this time.
--- NOTE | 2019-02-07 08:30 | NUR ---
PATIENTS FAMILY ( DAUGHTER AND GRANDDAUGHTER) AT BEDSIDE UPDATED ON PATIENTS STATUS THROUGHOUT NIGHT AND PLAN OF CARE
--- NOTE | 2019-02-07 09:00 | NUR ---
DR BLANDON AT BEDSIDE DISCUSSED PLAN OF CARE, NEW ORDERS PLACED
--- NOTE | 2019-02-07 09:25 | NUR ---
DR CARLIN AT BEDSIDE DISCUSSED PLAN OF CARE WITH PATIENTS DAUGHTER AND GRANDDAUGHTER
[2019-02-07] MEDS: SODIUM CHLOR 0.9% PF (SALINE LOCK) 10ML VIAL/SYR IV SCH ×2 (10:00→22:23)
[2019-02-07] MEDS: PHYTONADIONE (VIT K)10 MG/ML 1ML VIAL SUBCUT SCH (10:01)
[2019-02-07] MEDS: PANTOPRAZOLE 40 MG/10 ML VIAL INJ IV SCH ×2 (10:01→22:23)
[2019-02-07] MEDS: MEROPENEM 500MG IVPB 50 ML IV SCH ×2 (10:02→22:23)
--- NOTE | 2019-02-07 12:40 | NUR ---
DR KANG AT BEDSIDE DISCUSSED PLAN OF CARE WITH PATIENTS DAUGHTER AND GRANDDAUGHTER
--- NOTE | 2019-02-07 14:04 | NUR ---
assessment Patient is a 88 year old male who is on a vent. Per patient's granddaughter Kassi patient lives with her and family and functioned with assistance. Patient has a fww, 02, cane, wheelchair, and a scooter for home use. Per Kassi family prepares patient's meals and assists patient with his adls. Kassi informed me she and the family care for patient with no problems. Patient's pcp is Dr Jackson. I informed Kassi she and family have a right to speak to a social professionals regarding patient's care. I informed her they have a right to participate in patient's discharge plan and they have a right to privacy. Patient has good family support. Family is aware of visiting hours. Patient's discharge needs to be determined post extubation. Patient does not have a POA and advanced directive. I have offered family information on POA and advanced directives. I informed family the advantages and benefits of having an Advanced Directive. Kassi verbalized understanding. Addendum: 02/07/19 at 1406 by Analilia NASSAR Amended: Links added.
--- NOTE | 2019-02-07 15:04 | NUR ---
Nutrition Follow-up Notes Wt.: 92.4 kg Pt`s intubated sedated with no family by beside. pt is currently NPO of EN support with Glucerna @ 15 ml.hr providing 432 kcals and 21 gm proteins. pt with inadequate EN support as it meets 18-22% kcals and 27-33% proteins Est. Needs BW 77 [id number] kcal (25-30 kcal/kgBW), 62-77 gms pro (0.8-1.0 gms/kgBW r/t elev RFT). Will continue to monitor pertinent labs and reassess nutrient need prn Labs: BUN 52 H, CREAT 4.36 H, GLU 218 H, Skin: Panfilo scale 11, high risk, hyperpigmentation per RN doc GI: Pt had 2 BM today per straight ruling machine operator. PES: Impaired swallowing r.t current medical condition aeb pt`s intubated sedated with oder of NPO Altered nutrition related lab values r/t current/chronic medical condition aeb elev RFT hyperglycemia, hypocalcemia, mod hypoalb Will continue to monitor NPO status, EN tolerance, skin status, pertinent labs and weight trend. F/u in 2-3 days. Rec.: 1.) consider alternate nutrition suport if pt NPO > 48 hrs. If EN is choice of route consider Glucerna @ 65 ml/hr per MD approval. 2) consider PN support to meet > 75% of needs if GI is not accessible. 3) advance diet as medically feasible. 4) continue current plan of care
[2019-02-07] MEDS: PHENYLEPHRINE INJ 80 MG in SODIUM CHL 0.9% 250 ML IV SCH (15:54)
--- NOTE | 2019-02-07 19:00 | NUR ---
OPENING NOTE ASSUMED CARE OF PATIENT AT THIS TIME. REPORT RECEIVED FROM DAY SHIFT RN. POC REVIEWED. HEAD TO TOE ASSESSMENT COMPLETE, SEE INTERVENTION SPREADSHEET FOR COMPLETE DETAILS. RECEIVED PT INTUBATED AND SEDATED. RECEIVED PT ON LEVO AT 20 MCG, AND VASO AT 0.03 UNITS. VSS. IV SITES BENIGN. NGT TO LIS. FAUSTIN CATHETER DRAINING TO GRAVITY. RECEIVED PT WITH BILIARY DRAIN. BED LOCKED AND IN LOWEST POSITION, SAFETY PRECAUTIONS IN PLACE. SUCTION AND BVM AT BEDSIDE. WILL MONITOR PT CAREFULLY.
[2019-02-07] MEDS: MIDAZOLAM DRIP 50 mg/50mL 50 ML IV SCH (19:56)
[2019-02-07] MEDS: PROPOFOL 100 ML IV SCH (19:56)
--- NOTE | 2019-02-07 20:24 | NUR ---
RESIDUALS 70 MLS ASPIRATED AT 15 MLS/HR. TF TURNED OFF AT THIS TIME.
[2019-02-07] MEDS: NOREPINEPHRINE BITARTRATE 32 MG in D5W 5% 218 ML IV SCH (20:38)
--- NOTE | 2019-02-07 20:45 | NUR ---
BATHING/ELIMINATION PT HAD MODERATE STOOL. PT CLEANED AND JESIKA/SKIN CARE PROVIDED. SCROTAL SWELLING INCREASING. SKIN TEARING AND BLEEDING NOTED. BARRIER CREAM APPLIED. PT TURNED AND REPOSITIONED.
--- NOTE | 2019-02-07 21:28 | NUR ---
WOUND ASSESSMENT/PHOTOS UPON SHIFT PHYSICAL ASSESSMENT, 2 SMALL BLISTERS AND SKIN TEAR NOTED IN LEFT SACRAL AREA. WOUND CARE PHOTOS TAKEN. Z-GUARD AND OPTIFOAM DRESSINGS PLACED ON AFFECTED AREAS FOR PROTECTION. NO OTHER SKIN ISSUES NOTED. Addendum: 02/07/19 at 2129 by ESTEFANIA CROFT RN WRONG PATIENT.
--- NOTE | 2019-02-07 22:17 | NUR ---
Respiratory note: fio2 titrated to 40% FLASH Osborne made aware of vent o2 change.
[2019-02-08] VITALS (104 sets, daily range): BP systolic 81–129; BP diastolic 49–77
[2019-02-08] MEDS: InsuLIN REG 1unit/0.01ml Soln (100units/ml) SC SCH ×4 (00:06→18:57)
[2019-02-08] MEDS: ACCU-CHEK COMFORT CURVE STRIP VI SCH ×4 (00:06→18:17)
--- NOTE | 2019-02-08 00:15 | NUR ---
RESIDUALS PT HAS 70 MLS OF RESIDUAL TF. TF STILL HELD AT THIS TIME.
[2019-02-08] MEDS: ALBUTEROL SULF 2.5 MG/0.5ML(0.5%) NEB SOLN NEB SCH ×6 (02:05→22:24)
[2019-02-08] MEDS: IPRATROPIUM BROM 0.5 MG/2.5ML INH SOL NEB SCH ×6 (02:05→22:24)
--- NOTE | 2019-02-08 02:08 | NUR ---
Respiratory note: fio2 titrated to 35% freda mckoy made aware of change.
[2019-02-08] MEDS ORDERED: VASOPRESSIN 20 UNIT/ML ONE (03:19)
--- NOTE | 2019-02-08 04:14 | NUR ---
BED BATH/LINEN CHANGE PT HAD SMEAR OF STOOL. EJSIKA CARE RENDERED. BARRIER CREAM APPLIED TO JESIKA AREA AND SACRUM AND SCROTUM. PT SATS DECREASE TO 80% WHEN TURNING. SUCTION TUBING AND CANISTER CHANGED AT THIS TIME. SAFETY PRECAUTIONS MAINTAINED. WILL CONTINUE WITH CARE.
[2019-02-08 04:16] LABS: Hematocrit 23.8 % (41.0-53.0); Hemoglobin 8.1 g/dL (13.5-17.5); Mean Corpuscular Hgb Conc. 34.1 g/dL (32.0-36.0)
[2019-02-08 04:20] LABS: Mean Corpuscular Hemoglobin 32.4 pg (28.0-32.0); Mean Corpuscular Volume 94.9 fL (80.0-100.0); Platelet Count (auto) 33 10^3/uL (140-450); Red Blood Cells 2.51 10^6/uL (4.5-5.90); Red Cell Distribution Width 17.5 % (11.8-14.3)
--- NOTE | 2019-02-08 04:20 | NUR ---
RESIDUALS 60 MLS TF ASPIRATED. TUBE FLUSHED AND CLAMPED. CONTINUE TO HOLD TF AT THIS TIME.
[2019-02-08] MEDS: VASOPRESSIN 50 UNITS in D5W 5% 247.5 ML IV SCH (04:24)
[2019-02-08] MEDS: fentaNYL Drip 2500mCg/250mlNS 250 ML IV SCH (04:24)
--- NOTE | 2019-02-08 04:27 | NUR ---
IV DC ALL PERIPHERAL IV'S DC'D. IV CATHETER INTACT. PRESSURE DRESSING APPLIED. PT TOLERATED WELL.
[2019-02-08 04:36] LABS: Potassium 4.6 mmol/L (3.5-5.1)
[2019-02-08 04:42] LABS: Albumin 1.9 g/dL (3.4-5.0); BUN/Creatinine Ratio 12.5; Bilirubin, Total 9.6 mg/dL (0.2-1.0); Total Protein 4.8 g/dL (6.4-8.2)
[2019-02-08 05:03] LABS: Calcium 5.8 mg/dL (8.5-10.1)
[2019-02-08 05:04] LABS: Basophils % (manual) 0 (0.0-2.0); Blast Cells 0; Eosinophils % (manual) 0 (0-7); Promyelocytes % 0; Reactive Lymphocytes 0; White Blood Cell 34.6 10^3/uL (4.4-10.8)
--- NOTE | 2019-02-08 05:29 | NUR ---
CRITICAL LAB HOSPITALIST PAGED AT THIS TIME TO REPORT CRITICAL CALCIUM OF 5.8
[2019-02-08] MEDS: FUROSEMIDE INJECTION 250 MG in D5W 5% 225 ML IV SCH (05:39)
[2019-02-08 06:24] LABS: Band Neutrophils % (manual) 25; Lymphocytes % (manual) 5 (10.0-50.0); Metamyelocytes % 1; Monocytes % (manual) 6 (0-12); Myelocytes % 1
[2019-02-08] MEDS ORDERED: CALCIUM GLUC 4.65meq/50ml D5AE 50 ML IV ONE ×3 (06:39→07:15)
--- NOTE | 2019-02-08 06:41 | NUR ---
HOSPITALIST RETURNED PAGE ORDERS RECEIVED TO GIVE PATIENT 2 GMS OF CALCIUM.
--- NOTE | 2019-02-08 08:10 | NUR ---
PATIENTS DAUGHTER AND GRANDDAUGHTER AT BEDSIDE UPDATED ON STATUS THROUGHOUT THE NIGHT.
[2019-02-08] MEDS: SODIUM CHLOR 0.9% PF (SALINE LOCK) 10ML VIAL/SYR IV SCH ×2 (10:00→21:46)
--- NOTE | 2019-02-08 10:02 | NUR ---
DR MALIK AT BEDSIDE WITH DIGESTER COOK
--- NOTE | 2019-02-08 10:45 | NUR ---
DR CARLIN AT BEDSIDE NO NEW ORDERS
[2019-02-08] MEDS: PANTOPRAZOLE 40 MG/10 ML VIAL INJ IV SCH ×2 (11:40→21:46)
[2019-02-08] MEDS: MEROPENEM 500MG IVPB 50 ML IV SCH ×2 (11:40→21:44)
[2019-02-08] MEDS: PHYTONADIONE (VIT K)10 MG/ML 1ML VIAL SUBCUT SCH (11:40)
--- NOTE | 2019-02-08 12:30 | NUR ---
DR KANG AT BEDSIDE DISCUSSED PLAN OF CARE WITH PATIENTS DAUGHTER AND GRANDDAUGHTER
--- NOTE | 2019-02-08 13:15 | NUR ---
DR BLANDON AT BEDSIDE NEW ORDERS PLACED
[2019-02-08] MEDS: BUMETANIDE INJECTION 25 MG in GIVE UN-DILUTED 0 ML IV SCH (15:29)
[2019-02-08] MEDS: METOCLOPRAMIDE HCL 5MG/ml INJ 2ml VIAL IV SCH ×2 (15:40→21:46)
[2019-02-08] MEDS: ALBUMIN 25% 100 ML IV SCH ×2 (15:41→21:45)
[2019-02-08] MEDS: PHENYLEPHRINE INJ 80 MG in SODIUM CHL 0.9% 250 ML IV SCH (16:19)
[2019-02-08] MEDS: NOREPINEPHRINE BITARTRATE 32 MG in D5W 5% 218 ML IV SCH (16:19)
--- NOTE | 2019-02-08 19:22 | NUR ---
OPEN SHIFT RECEIVED REPORT ON FULL CODE ICU PATIENT FROM DAY SHIFT RN. PATIENT INTUBATED AND SEDATED ON FENTANYL RESPONDING ONLY TO DEEP PAIN. VASOPRESSIN AND LEVOPHED GTT'S WITH A BP 101/56 AND HR 88. FOR GTTS AND THEIR TITRATIONS SEE IV SPREAD SHEET. OGT CLAMPED, ASPIRATED AND AUSCULTATED CORRECT PLACEMENT. FAUSTIN FREE OF KINKS, HUNG BELOW BLADDER AND DRAINING TO GRAVITY. RT UPPER QUADRANT CHOLECYSTOSTOMY INTACT TO BULB SUCTION, DRAINING GREEN FLUID. FOR MORE INFORMATION PLEASE SEE ASSESSMENT. Addendum: 02/09/19 at 0346 by Napoleon Jeronimo RN RN NGT IN LEFT NARIS NOT OGT
[2019-02-08] MEDS: PROPOFOL 100 ML IV SCH (19:56)
[2019-02-08] MEDS: MIDAZOLAM DRIP 50 mg/50mL 50 ML IV SCH (19:56)
--- NOTE | 2019-02-08 22:00 | NUR ---
FEEDING STARTED @15ML/HR
[2019-02-09] VITALS (104 sets, daily range): BP systolic 76–139; BP diastolic 45–75
--- NOTE | 2019-02-09 00:25 | NUR ---
BED BATH GIVEN PATIENT TOLERATED WELL. FULL LINEN CHANGED. BARRIER CREAM AND OPTIFOAM PLACED ON SCROTUM. Addendum: 02/09/19 at 0440 by Napoleon Jeronimo RN RN PICTURE OF SCROTUM TAKEN PER PROTOCOL
[2019-02-09] MEDS: IPRATROPIUM BROM 0.5 MG/2.5ML INH SOL NEB SCH ×6 (02:10→22:03)
[2019-02-09] MEDS: ALBUTEROL SULF 2.5 MG/0.5ML(0.5%) NEB SOLN NEB SCH ×6 (02:10→22:03)
--- NOTE | 2019-02-09 03:00 | NUR ---
RESIDUAL RESIDUAL OF 69ML. HELD FEEDINGS AT THIS TIME.
--- NOTE | 2019-02-09 03:42 | NUR ---
LABS DRAWN BY RN FROM [facility]
[2019-02-09 04:29] LABS: Red Cell Distribution Width 17.4 % (11.8-14.3)
[2019-02-09 04:32] LABS: Hematocrit 22.5 % (41.0-53.0); Hemoglobin 7.7 g/dL (13.5-17.5); Mean Corpuscular Hemoglobin 31.9 pg (28.0-32.0); Mean Corpuscular Hgb Conc. 34.2 g/dL (32.0-36.0); Mean Corpuscular Volume 93.2 fL (80.0-100.0); Platelet Count (auto) 27 10^3/uL (140-450); Red Blood Cells 2.41 10^6/uL (4.5-5.90)
[2019-02-09 04:40] LABS: Basophils % (manual) 0 (0.0-2.0); Blast Cells 0; Eosinophils % (manual) 0 (0-7); Metamyelocytes % 0; Myelocytes % 0; Promyelocytes % 0; Reactive Lymphocytes 0
[2019-02-09 04:44] LABS: INR 1.29 (0.9-1.15); Partial Thromboplastin Time 37.9 sec (23.64-32.05)
[2019-02-09 04:47] LABS: Albumin 2.5 g/dL (3.4-5.0); BUN/Creatinine Ratio 11.7; Calcium 6.3 mg/dL (8.5-10.1); Magnesium 2.2 mg/dL (1.6-2.6); Potassium 4.4 mmol/L (3.5-5.1)
[2019-02-09 04:59] LABS: Bilirubin, Total 11.4 mg/dL (0.2-1.0); Total Protein 5.3 g/dL (6.4-8.2)
[2019-02-09] MEDS: ALBUMIN 25% 100 ML IV SCH (05:06)
[2019-02-09 05:40] LABS: Band Neutrophils % (manual) 7; Lymphocytes % (manual) 7 (10.0-50.0); Monocytes % (manual) 26 (0-12)
[2019-02-09] MEDS: METOCLOPRAMIDE HCL 5MG/ml INJ 2ml VIAL IV SCH ×3 (06:05→22:06)
[2019-02-09] MEDS: InsuLIN REG 1unit/0.01ml Soln (100units/ml) SC SCH ×4 (06:20→17:44)
[2019-02-09] MEDS: ACCU-CHEK COMFORT CURVE STRIP VI SCH ×4 (06:21→17:44)
--- NOTE | 2019-02-09 07:00 | NUR ---
RECEIVED CALL FROM FAMILY GRANDDAUGHTER CALLED ASKING FOR AN UPDATE. AFTER RECEIVING CORRECT PASSWORD, UPDATED FAMILY MEMBER ON PATIENT STATUS THROUGH THE NIGHT.
--- NOTE | 2019-02-09 07:35 | NUR ---
REPORT RECEIVED/ DESATURATION DURING REPORT BY NOC NURSE PATIENT NOTED TO DESATURATE TO 86%, AT TIME FI02 NOTED AT 30%. 100% SUPPLEMENT PROVIDED. NOC NURSE AT BEDSIDE PERFORMED ETT SUCTIONING WITH MINIMAL SECRETIONS NOTED. R.T AT BEDSIDE, FI02 INCREASED TO 40% AT THIS TIME. POX POST INTERVENTION NOTED AT 97-98%. SEE PHYSICAL ASSESSMENT/ INTERVENTIONS.
--- NOTE | 2019-02-09 07:36 | NUR ---
END OF SHIFT GAVE REPORT OF FULL CODE ICU PATIENT TO DAY SHIFT RN. VITAL SIGNS STABLE. ALL FALL AND SAFETY PRECAUTIONS IN PLACE. BED LOCKED AND IN LOWEST POSITION.
--- NOTE | 2019-02-09 09:30 | NUR ---
HIGH GASTRIC RESIDUAL APPROX 375ML OF TF NOTED VIA NG. FEEDINGS REMAINS ON HOLD. STRICT ASPIRATION PRECAUTIONS IN PLACE.
--- NOTE | 2019-02-09 09:54 | NUR ---
PHYSICAL ASSESSMENT COMPLETED, POSITION CHANGE HELD AT THIS TIME DUE TO DESATURATION DURING CHANGE OF SHIFT. WHILE IN ROOM PERFORMING PHYSICAL WITH LITTLE/ NO MOVEMENT PT NOTED AGAIN TO DESATURATE TO 86%. CUFF LEAK NOTED. CUFF ADJUSTED BY R.T CURRENT FI02 AT 60%. POX POST ADJUSTMENT 97%. WILL POSITION WITH CAUTION. SEE INTERVENTION FOR FURTHER INFORMATION. Addendum: 02/09/19 at 1045 by Deplhine Manning RN A.M. CARE PROVIDED, INCLUDING CLEANSING OF FACE WITH WASH CLOTH, SMALL AMOUNT OF DRY, GREEN DISCHARGE NOTED TO BILATERAL EYES. AFTER FACIAL CLEANASE PT NOTED TO HAVE A SMALL TEAR NOTED TO OUTER LEFT EYELID. ONCE GENTLE WIPED A CLOT NOTED FOR FORM. WILL MONITOR FOR ANY FURTHER BLEEDING PT PLT COUNT LOW.
--- NOTE | 2019-02-09 10:00 | NUR ---
FAMILY DAUGHTER AT BEDSIDE UPDATED ON PATIENTS STATUS. DAUGHTER SLIGHTLY UPSET SHE WAS NOT LET IN WHEN REQUESTING TO ENTER THIS A.M. INFORMED DAUGHTER PHYSICAL ASSESSMENT IS PRIORITY NOTIFIED OF OCCURRENCE NOTED PREVIOUSLY WITH INTERVENTIONS. DAUGHTER VERBALIZED UNDERSTANDING. UPDATED ON PLAN OF CARE. QUESTIONS AND CONCERNS ADDRESSED.
--- NOTE | 2019-02-09 10:30 | NUR ---
SKIN UNABLE TO ASSESS PATIENTS BACKSIDE. SEE PREVIOUS NOTES. RIGHT OUTER EAR NOTED TO HAVE A SKIN TEAR. ZGAURD APPLIED/ OPTIFOAM IN PLACE. PICTURES TO BE TAKEN. FAMILY AT BEDSIDE AWARE OF RISK THIS TIME. WILL CONTINUE TO OFF LOAD BONY PROMINENCES TOLERATED.
--- NOTE | 2019-02-09 10:45 | NUR ---
MEDIA CLERK UPDATED DR. BLANDON UPDATED ON PATIENT STATUS. NO NEW ORDERS AT THIS TIME.
[2019-02-09] MEDS: MEROPENEM 500MG IVPB 50 ML IV SCH ×2 (10:59→22:06)
[2019-02-09] MEDS: PANTOPRAZOLE 40 MG/10 ML VIAL INJ IV SCH ×2 (10:59→22:06)
[2019-02-09] MEDS: PHYTONADIONE (VIT K)10 MG/ML 1ML VIAL SUBCUT SCH (11:00)
[2019-02-09] MEDS: SODIUM CHLOR 0.9% PF (SALINE LOCK) 10ML VIAL/SYR IV SCH ×2 (11:00→22:06)
--- NOTE | 2019-02-09 11:27 | NUR ---
Nutrition Follow-up Notes Wt.: 90.3 kg today. Pt's intubated, sedated, no immediate family member at beside during rounds earlier. Pt's currently NPO with EN support temporarily off d/t high residuals (>300ml) noted this morning, per nursing. Noted pt's previously on Glucerna 1.2 Mich @ 15 ml/hr providing 432 kcal and 21 gm proteins with active Wound consult. Est. Needs BW 77 [id number] kcal (25-30 kcal/kgBW), 62-77 gms pro (0.8-1.0 gms/kgBW r/t elev RFT). Will continue to monitor pertinent labs and reassess nutrient need prn Labs: Gluc 160 H, Na 127 L, Cl 88 H, BUN 69 H, Cr 5.89 H, Ca 6.3 L, Tot gretta 11.4 H, AST 56 H, ALT 171 H, ALP 259 H, Tpro 5.3 L, Alb 2.5 L Skin: Panfilo scale 9, high risk, pt's bilateral lower extremities hyperpigmentation per RN doc GI: Pt had 1 BM this morning per wig dresser. PES: Impaired swallowing r/t current medical condition aeb pt`s intubated sedated with oder of NPO Altered nutrition related lab values r/t current/chronic medical condition aeb elev RFT hyperglycemia, hypocalcemia, mod hypoalb Will continue to monitor NPO status, EN tolerance, skin status, pertinent labs and weight trend. F/u in 2 to 3 days. Rec.: 1.) If still NPO, consider to resume EN support at lower rate with gradual increase on feeding rate of Glucerna 1.2 Mich to 60 ml/hr goal rate as tolerated when medically appropriate. 2.) If Albumin continues trending down with improved renal labs, consider Prostat 1 pkt BID. 3.) If still NPO with GIT's not working/unable to tolerate EN support, consider PN support if medically appropriate. 4.) Advance gradually to oral diet when medically feasible. 5.) Refer pt to CDE/RD for further nutrition education and weight monitoring upon discharge. 6.) Continue current plan of care.
[2019-02-09] MEDS: NOREPINEPHRINE BITARTRATE 32 MG in D5W 5% 218 ML IV SCH (12:36)
[2019-02-09] MEDS: VASOPRESSIN 50 UNITS in D5W 5% 247.5 ML IV SCH (12:37)
[2019-02-09] MEDS: PHENYLEPHRINE INJ 80 MG in SODIUM CHL 0.9% 250 ML IV SCH (12:37)
[2019-02-09] MEDS: BUMETANIDE INJECTION 25 MG in GIVE UN-DILUTED 0 ML IV SCH ×2 (12:37→17:15)
--- NOTE | 2019-02-09 12:45 | NUR ---
DESATURATION DURING POSITION CHANGE PILLOW REMOVED AND PATIENT PLACED SUPINE, SHORTLY AFTER 02 SATURATION DECREASED TO 80%, 100% SUPPLEMENT PROVIDED. NO SECRETION VIA ETT. R.T PAGED. LAVAGE PROVIDED AND SLOWLY INCREASED BACK TO 97%. DROP COUNT ASSOCIATE PAGED TO NOTIFY. NEW ORDERS IN PLACE. STATING HE WILL BE IN SHORTLY TO SEE PATIENT. R.T AWARE. FI02 REMAINING AT 100% AT THIS TIME.
[2019-02-09] MEDS: ACETYLCYSTEINE 10 %(100MG/ML) SOL 4ML NEB SCH ×3 (14:00→22:06)
--- NOTE | 2019-02-09 14:10 | NUR ---
Md rounds Dr. De Jesus at bedside. Md updated on patients status. Md updated granddaughter on plan of care, questions and concerns addressed. See new orders.
--- NOTE | 2019-02-09 14:16 | NUR ---
Gastric residual Gastric contents reassessed from a.m. . Total of 150ml of tube feedings contents noted. Aspiration precautions in place. MD aware, new order for PPN. Family educated on risk and benefits of peripheral nutrition. Daughter and granddaughter at bedside verbalized understanding.
--- NOTE | 2019-02-09 15:04 | NUR ---
DELIVERY ARCHITECT AT BEDSIDE MD UPDATED ON PATIENTS STATUS. BEDSIDE ROUNDS MADE. VENT CHANGES DONE BY MD. MD REQUESTING TO PULL BACK ETT BY 2CM, REQUESTING PPN TO BE HELD FOR THE NEXT 48HRS. NEW ORDERS IN PLACE. R.T AWARE OF VENT CHANGES MADE.
--- NOTE | 2019-02-09 15:15 | NUR ---
HOSPITALIST CALLED TO NOTIFY PLATINUM SMITH IS RECOMMENDING TO HOLD OFF PPN AT THIS TIME. PER DR. NATTY LOYA SHE IS STATING SHE WOULD LIKE TO CONTINUE WITH ORDER PATIENT HAS NOT HAD NUTRITION SINCE ADMISSION PER NOTES. Addendum: 02/09/19 at 1648 by Delphine Manning RN MD CALLED BACK AFTER DISCUSSING CONCERN WITH PLATINUM SMITH. PPN TO BE HELD AT THIS TIME.
--- NOTE | 2019-02-09 16:20 | NUR ---
DESATURATION AGAIN PT DESATURATED TO 85% POST F/U CXR . [employer] CERTIFIED INTERNETWORK EXPERT AWARE. NEW ORDERS TO INCREASE BUMEX GTT, COMMUNICATION ORDERS TO INCREASE PEEP IF DESATURATION CONTINUES. Rosario ROWE. Addendum: 02/09/19 at 1622 by Delphine Manning RN FI02 INCREASED BY Rosario
--- NOTE | 2019-02-09 16:30 | NUR ---
Position change not tolerated Patient currently turned slightly to left to possibly offload pressure as complete turn is not tolerated. Family again notified of patients poor tolerance to position change. Family aware of risk for pressure areas at this time. Informed we will try to make small turns to offload some pressure but risk are still very high. Educated on poor nutrition status that can place patient at higher risk for pressure areas. Daughter and granddaughter verbalized understanding that priority at this time is respiratory status.
--- NOTE | 2019-02-09 16:45 | NUR ---
BELT MAKER HELPER KYLE LANDEROS PAGED TO NOTIFY OF PATIENTS CURRENT RESP. STATUS WITH ORDERS TO INCREASE BUMEX. AWAITING CALLBACK.
--- NOTE | 2019-02-09 17:15 | NUR ---
ERYTHROMYCIN NOT AVAILABLE PHARMACY STATING ERYTHROMYCIN IS NOT AVAILABLE AT THIS TIME. MEDICATION WILL ARRIVE MONDAY AND WILL BE AVAILABLE IF NEEDED. MD AWARE. LACTULOSE/ REGLAN TO BE USED AT THIS TIME.
[2019-02-09] MEDS: PROPOFOL 100 ML IV SCH (17:18)
[2019-02-09] MEDS: MIDAZOLAM DRIP 50 mg/50mL 50 ML IV SCH (17:18)
[2019-02-09] MEDS: ERYTHROMYCIN ETHYLSUCCINATE 200 MG/5 ML ML GT SCH (17:19)
--- NOTE | 2019-02-09 17:47 | NUR ---
CASH MANAGER UPDATED ON PATIENTS STATUS AND NEW ORDER TO INCREASE BUMEX. MD VERBALIZED UNDERSTANDING. NO NEW ORDERS.
[2019-02-09] MEDS: fentaNYL Drip 2500mCg/250mlNS 250 ML IV SCH (17:57)
--- NOTE | 2019-02-09 18:00 | NUR ---
PEEP INCREASED 02 SATURATIONS CONTINUED TO DECREASE TO 86%, 100% SUPPLEMENTAL 02 PROVIDED. ONCE SUPPLEMENT NOTED TO COMPLETE PT CONTINUED TO DECREASE. R.T AT BEDSIDE. PER COMMUNICATION ORDER, PEEP TO BE INCREASED TO KEEP FI02 GREATER THAN 92%. R.T AT BEDSIDE. Addendum: 02/09/19 at 1839 by Delphine Manning RN SEE R.T NOTE. FIO2 100% PEEP OF 10 AT THIS TIME. POX 94%.
--- NOTE | 2019-02-09 19:16 | NUR ---
REPORT GIVEN UPDATED ON PLAN OF CARE AND PATIENTS CONDITION THROUGHOUT DAY. CURRENT POX 99%. CURRENT FI02. 100%, PEEP 12.
--- NOTE | 2019-02-09 19:30 | NUR ---
OPEN SHIFT RECEIVED REPORT ON FULL CODE ICU PATIENT FROM DAY SHIFT RN. PATIENT INTUBATED AND SEDATED ON FENTANYL. UNABLE TO TITRATE DOWN ON SEDATION DUE TO UNSTABLE OXYGENATION LEVELS. WILL ATTEMPT LATER IS STABLE. VASOPRESSIN AND LEVOPHED GTT'S WITH A BP 110/56 AND HR 87. FOR GTTS AND THEIR TITRATIONS SEE IV SPREAD SHEET. NGT CLAMPED DUE TO HIGH RESIDUALS, ASPIRATED AND AUSCULTATED CORRECT PLACEMENT. HOB >30 WITH STRICT ASPIRATION PRECAUTIONS IN PLACE. FAUSTIN FREE OF KINKS, HUNG BELOW BLADDER AND DRAINING TO GRAVITY. RT UPPER QUADRANT CHOLECYSTOSTOMY INTACT TO BULB SUCTION, DRAINING GREEN FLUID. MULTIPLE SKIN ISSUES, WILL TREAT PER WOUND CARE ORDERS FOR MORE INFORMATION PLEASE SEE ASSESSMENT.
--- NOTE | 2019-02-09 20:23 | NUR ---
GRANDDAUGHTER AT BEDSIDE UPDATED ON PATIENT STATUS, ALL QUESTIONS ANSWERED AT THIS TIME.
--- NOTE | 2019-02-09 22:00 | NUR ---
TURN DESATURATION ON ATTEMPT TO TURN TO SIDE PATIENT DESATURATED TO 84% SPO2. HOB TO HIGH FOWLERS. ETT SUCTION WITH SCANT MUCOSAL RETURN. AUSCULTATION OF DIMINISHED BUT PRESENT LUNG SOUNDS IN ALL 5 ARNETT. RT CALLED TO BEDSIDE. BEGAN MANUAL VENTILATION TO RESTORE SPO2 >91%. HELD TURNING PATIENT.
[2019-02-09] MEDS: LACTULOSE 20Gm/30ML SOLN PO SCH (22:06)
[2019-02-10] VITALS (96 sets, daily range): BP systolic 68–127; BP diastolic 42–62
--- NOTE | 2019-02-10 | NUR ---
TURN HELD AT THIS TIME FOR PATIENT SAFETY TURN IS HELD AT THIS TIME DUE TO PERIODS OF DESATURATION.
[2019-02-10] MEDS: InsuLIN REG 1unit/0.01ml Soln (100units/ml) SC SCH ×4 (01:06→17:25)
--- NOTE | 2019-02-10 01:09 | NUR ---
RT PAGED TO BEDSIDE SPONTANEOUS DESATURATION. ETT SUCTION WITH MINIMAL MUCOSAL RETURN. AUSCULTATION OF DIMINISHED BUT PRESENT LUNG SOUNDS IN ALL 5 ARNETT. BEGAN MANUAL VENTILATION TO RESTORE SPO2 >91%.
--- NOTE | 2019-02-10 01:11 | NUR ---
RESIDUAL 130ML. TUBE FEEDINGS REMAINED ON HOLD FOR HIGH RISK OF ASPIRATION. HOB>30.
--- NOTE | 2019-02-10 01:15 | NUR ---
Respiratory note: PAGED TO PTS ROOM DUE TO HIM HAVING A DESATURATION EPISODE. RN MELANY AND RN HU AT BEDSIDE BAGGING THE PT WITH AMBU BAG. PEEP VALVE ATTACHED TO AMBU BAG. PT BAGGED UNTIL HE REACHED 94%. PLACED BACK ON VENTILATOR.
--- NOTE | 2019-02-10 02:00 | NUR ---
TURN HELD AT THIS TIME FOR PATIENT SAFETY TURN IS HELD AT THIS TIME DUE TO PERIODS OF DESATURATION.
[2019-02-10] MEDS: ALBUTEROL SULF 2.5 MG/0.5ML(0.5%) NEB SOLN NEB SCH ×6 (02:15→22:23)
[2019-02-10] MEDS: ACETYLCYSTEINE 10 %(100MG/ML) SOL 4ML NEB SCH ×6 (02:15→22:23)
[2019-02-10] MEDS: IPRATROPIUM BROM 0.5 MG/2.5ML INH SOL NEB SCH ×6 (02:15→22:23)
[2019-02-10 03:39] LABS: Hematocrit 23.1 % (41.0-53.0); Mean Corpuscular Hemoglobin 32.2 pg (28.0-32.0); Mean Corpuscular Hgb Conc. 34.8 g/dL (32.0-36.0); Mean Corpuscular Volume 92.5 fL (80.0-100.0); Platelet Count (auto) 31 10^3/uL (140-450); Red Blood Cells 2.49 10^6/uL (4.5-5.90); Red Cell Distribution Width 17.3 % (11.8-14.3)
[2019-02-10 03:50] LABS: White Blood Cell 33.6 10^3/uL (4.4-10.8)
[2019-02-10 03:51] LABS: Basophils % (manual) 0 (0.0-2.0); Blast Cells 0; Eosinophils % (manual) 0 (0-7); Metamyelocytes % 0; Myelocytes % 0; Promyelocytes % 0; Reactive Lymphocytes 0
[2019-02-10 03:53] LABS: BUN/Creatinine Ratio 11.9; Calcium 6.3 mg/dL (8.5-10.1); Potassium 4.5 mmol/L (3.5-5.1)
--- NOTE | 2019-02-10 03:56 | NUR ---
[facility]. UPDATED ON WBC 33.6. NEW ORDERS RECEIVED.
[2019-02-10] MEDS ORDERED: VANCOMYCIN PER PHARMACY 0 MG IV SCH (04:00)
--- NOTE | 2019-02-10 04:00 | NUR ---
SCROTAL CARE PLACED BARRIER CREAM AND USED INGRID TO SUPPORT SCROTUM. PATIENT TOLERATED WELL.
[2019-02-10 04:50] LABS: Band Neutrophils % (manual) 14; Lymphocytes % (manual) 5 (10.0-50.0); Monocytes % (manual) 11 (0-12)
[2019-02-10] MEDS: METOCLOPRAMIDE HCL 5MG/ml INJ 2ml VIAL IV SCH ×3 (05:43→21:42)
[2019-02-10] MEDS: BUMETANIDE INJECTION 25 MG in GIVE UN-DILUTED 0 ML IV SCH ×2 (05:43→17:16)
[2019-02-10] MEDS: LACTULOSE 20Gm/30ML SOLN PO SCH ×3 (05:43→21:42)
[2019-02-10] MEDS: ERYTHROMYCIN ETHYLSUCCINATE 200 MG/5 ML ML GT SCH ×4 (05:44→16:16)
[2019-02-10] MEDS: ACCU-CHEK COMFORT CURVE STRIP VI SCH ×4 (05:45→17:16)
--- NOTE | 2019-02-10 06:08 | NUR ---
Respiratory note: RECEIVED PATIENT ON V20 V200 VENT ORALLY INTUBATED WITH AN 8.0 ETT SECURED VIA MOHAN AT THE 22CM MARKING AT THE LIP, AND MECHANICALLY VENTILATED WITH THE CHARTED SETTINGS. SPO2 100%, LUNG SOUNDS DIM T/O, SCANT AMOUNT OF LIGHT CALLES SECRETIONS WHEN SUCTIONED. SKIN IS WARM/DRY TO THE TOUCH AND IS INTACT NEAR MOHAN SITE. THERE IS A NGT PLACED IN THE LEFT NARE AND SECURED TO THE ETT. THERE IS A PICC LINE PLACED IN THE RIGHT UPPER ARM. EDEMA NOTED IN BILATERAL UPPER EXTREMITIES WELL LOWER EXTREMITIES. AM CXR ASSESSED AND IT SHOWS ETT IN SATISFACTORY POSITION SITTING APPROX 2.9CM ABOVE THE WILMAN, NO INDICATION TO ADJUST TUBE AT THIS TIME. PATIENT IS UNRESPONSIVE TO STIMULI AND IS SEDATED ON A FENTANYL DRIP. HE IS RESTING COMFORTABLY AND TOLERATING VENT WELL. VENT PLUGGED INTO RED OUTLET AND ALL ALARMS ARE SET AND AUDIBLE. WILL CONTINUE TO ASSESS PATIENT WELL VENTILATOR FUNCTION. [employer] RUN INLINE.
[2019-02-10] MEDS ORDERED: VANCOMYCIN 1GM/250ML 250 ML IV ONE (08:00)
--- NOTE | 2019-02-10 08:00 | NUR ---
RIGHT LATERAL DRAIN/ SKIN Righter lateral abd noted to have a small skin tear and a closed blister. Area cleansed with sterile water and padded dry with sterile gauze. Optifoam placed. Right lateral drain site changed. Site asymptomatic, cdi. Site cleansed with chlorhexidine swab, biopatch applied, gauze placed between skin and drain, and secured with tegaderm.
--- NOTE | 2019-02-10 08:30 | NUR ---
PICC Line Dressing Changes PICC line dressing change done with a sterile technique. Cleansed with chloraprep scrub. Stat lock, and bio-patch as available. Occlusive dressing applied. See e-MAR for medications given during this visit.
--- NOTE | 2019-02-10 09:30 | NUR ---
Family updated on pt status Family of SUZETTE KO updated on patient's status and condition. All questions and concerns addressed. / daughter verbalized understanding.
--- NOTE | 2019-02-10 10:09 | NUR ---
REPOSITIONED PILLOW REMOVED FROM LEFT SIDE AND PLACED ON RIGHT SIDE. SLIGHT TURN TO LEFT WITH R.T AT BEDSIDE POX REMAINED 100% ON 95% FI02. WILL CONTINUE TO TURN IF TOLERATED.
--- NOTE | 2019-02-10 10:25 | NUR ---
UNABLE TO MAKE LARGE TURN AT THIS TIME. SEE PREVIOUS NOTES. Addendum: 02/10/19 at 1026 by Delphine Manning RN Amended: Links added.
[2019-02-10] MEDS: PHYTONADIONE (VIT K)10 MG/ML 1ML VIAL SUBCUT SCH (10:40)
[2019-02-10] MEDS: PANTOPRAZOLE 40 MG/10 ML VIAL INJ IV SCH ×2 (10:40→21:42)
[2019-02-10] MEDS: MEROPENEM 500MG IVPB 50 ML IV SCH (10:40)
[2019-02-10] MEDS: SODIUM CHLOR 0.9% PF (SALINE LOCK) 10ML VIAL/SYR IV SCH ×2 (10:41→21:42)
--- NOTE | 2019-02-10 11:15 | NUR ---
WOUND CARE NOTE: PATIENT HAS ANOTHER SKIN INTEGRITY ISSUE. WOUND PHOTO TAKEN BY BEDSIDE NURSE UPON DISCOVERY FOR REFERENCE. PATIENT CONTINUES TO BE INTUBATED, SEDATED. CURRENT YAIMA SCORE IS 8. PATIENT IS FRAGILE VERY UNSTABLE HEMODYNAMICALLY, UNABLE TO TURN PATIENT. WOULD LIKE TO PLACE PATIENT ON AIR BED AT THIS TIME, UNABLE TO TRANSFER ONTO AIR BED D/T UNSTABLE STATE. WILL ATTEMPT TO SEE PATIENT AGAIN TOMORROW. PATIENT HAS A VERY SMALL ABRASION TO THE RIGHT EAR. WOUND PHOTO PLACED IN CHART FOR REFERENCE. RECOMMEND: CONTINUATION WITH WOUND CARE ORDERS PREVIOUSLY PRESCRIBED BY , SPECIALTY AIR MATTRESS WHEN ABLE TO TRANSFER ONTO BED. WOUND CARE WILL CONTINUE TO MONITOR.
--- NOTE | 2019-02-10 11:15 | NUR ---
WOUND CARE ROUNDS MADE RN NOTIFIED OF SKIN AREAS OF CONCERN. INFORMED WE HAVE NOT BEEN ABLE TO MAKE LARGE TURNS AT THIS POINT HIS RESPIRATORY STATUS HAS BEEN UNSTABLE. RN STATED SPECIALTY MATTRESS IS RECOMMENDED. RN VERBALIZED UNDERSTANDING BUT STATED THAT TRANSFER FROM ONE BED TO ANOTHER IS NOT RECOMMENDED AT THIS TIME. RN AWARE AND TO FOLLOW UP.
[2019-02-10] MEDS: VASOPRESSIN 50 UNITS in D5W 5% 247.5 ML IV SCH (11:56)
--- NOTE | 2019-02-10 13:41 | NUR ---
GASTRIC RESIDUAL/ DESATURATION ASPIRATED 150ML OG GASTRIC CONTENTS WITH TUBE FEEDINGS. CONNECTED TO LIS. POST SUCTION SCHEDULED LACTULOSE ADMINISTERED IN ATTEMPT TO INCREASE GASTRIC MOTILITY. AFTER ADMINISTERING LACTULOSE VIA NG PT NOTED TO DESATURATE TO 95% THEN DOWN TO 89% DESPITE 100% SUPPLEMENT PROVIDED. R.T AT STATION NOTIFIED. ONCE R.T IN ROOM PT NOTED TO DESAT LOW 76%. PT BAGGED BY R.T FOR APPROX 7 MIN. POX INCREASED BACK TO 96%, PT PLACED BACK ON VENTILATOR. FI02 100% AT THIS TIME. MD TO BE NOTIFIED.
--- NOTE | 2019-02-10 13:41 | NUR ---
Respiratory note: RT CALLED INTO PT ROOM FOR DESATURATION INTO THE 70%. SPO2 NOTED TO BE 77% DESPITE FI02 INCREASE TO 100% FROM 80%. RT STARTED TO BAG PT FOR APPROX 7 MINUTES BEFORE SATS IMPROVED TO 93%. FLASH PARRA AT BEDSIDE T/O. PT PLACED BACK ON VENT WITH PREVIOUS SETTINGS WITH INCREASED FI02 100%. RT DOUG PAGED AND AWARE. NO IN ROOM WITH PT. PT WAS ALSO ETS FOR MODERATE SEMI THICK PALE YELLOW RETURN.
[2019-02-10] MEDS ORDERED: Glucerna 1.2 Cal 1Liter BOTTLE GT SCH (14:00)
[2019-02-10] MEDS ORDERED: TPN PER PHARMACY 0 ML IV SCH (14:15)
--- NOTE | 2019-02-10 14:15 | NUR ---
HOSPITALIST AT BEDSIDE DR. VELASCO UPDATED ON PATIENTS STATUS. MD NOTIFIED OF OCCURRENCE POST MEDIATION ADMINISTRATION VIA NG. MD STATED SHE WOULD RATHER HAVE PATIENT NPO AT THIS TIME. UPDATED FAMILY AT BEDSIDE ON PATIENTS POOR PROGNOSIS AND ADVISING FAMILY MEMBERS TO VISIT AT THIS TIME. FAMILY VERBALIZED UNDERSTANDING.
--- NOTE | 2019-02-10 14:30 | NUR ---
CARD PLACER AT BEDSIDE DR. BLANDON UPDATED ON PATIENTS STATUS. UPDATED SON AND GRANDDAUGHTER AT BEDSIDE THAT PATIENT REMAINS TOO HIGH OF RISK FOR DIALYSIS AT THIS TIME. SEE MD NOTES/ ORDERS.
[2019-02-10] MEDS: NOREPINEPHRINE BITARTRATE 32 MG in D5W 5% 218 ML IV SCH (14:51)
[2019-02-10] MEDS: PHENYLEPHRINE INJ 80 MG in SODIUM CHL 0.9% 250 ML IV SCH (14:51)
--- NOTE | 2019-02-10 15:15 | NUR ---
YARDAGE CALLER AT BEDSIDE DR. RAMIREZ AT BEDSIDE. UPDATED ON PATIENTS STATUS. R.T ALSO NOTIFIED OF DESATURATION THROUGHOUT SHIFTS. MD VERBALIZED UNDERSTANDING. ORDER FOR ABG IN PLACE. REVIEWED ABG WITH R.T FI02 DECREASED
[2019-02-10] MEDS ORDERED: CALCIUM GLUC 4.65meq/50ml D5AE 50 ML IV ONE (15:30)
--- NOTE | 2019-02-10 15:30 | NUR ---
TPN ON HOLD PER DR. VELASCO SPOKE WITH AND DECIDED TO HOLD OFF ON TPN FOR TODAY WELL. TF TO BE STARTED TOMORROW AT THIS TIME. ORDER CORRECTED. RX CALLED TO NOTIFY TO FOLLOW UP IN A.M.
--- NOTE | 2019-02-10 15:32 | NUR ---
Respiratory note: FIO2 DECREASED TO 70% POST ABG PO2 RESULTS, AND PER DR. RAMIREZ'S VERBAL ORDER. FLASH PARKER MADE AWARE OF CHANGE. SPO2 MAINTAINED AT 96%.
--- NOTE | 2019-02-10 16:12 | NUR ---
POSITION CHANGE HELD PATIENT CURRENTLY ON FI02 70% POX AT THIS TIME NOTED AT 91%. SEE PREVIOUS NOTE/ DESATURATIONS.
--- NOTE | 2019-02-10 16:44 | NUR ---
DESATURATION PATIENT DESATURATED SPONTANEOUSLY TO 88%, 100% 02 PROVIDED. R.T PAGED. PT CONTINUED TO DESAT LOW AT 72%. R.T AT BEDSIDE BAGGING PATIENT FOR GREATER THAN 7 MIN. POX THEN BEGAN TO INCREASE AND PLACED BACK ON VENT WITH FI02 100%. FAMILY AT BEDSIDE AWARE OF OCCURRENCE. WILL CONTINUE TO MONITOR PATIENT.
[2019-02-10] MEDS ORDERED: MAGNESIUM SULFATE 1GM/100ML 100 ML IV ONE (18:00)
--- NOTE | 2019-02-10 19:28 | NUR ---
REPORT GIVEN UPDATED ONCOMING NURSES ON PATIENTS CONDITION. CURRENT POX 98% FI02 AT 100%. SEE IV SPREADSHEET.
--- NOTE | 2019-02-10 19:48 | NUR ---
OPEN SHIFT RECEIVED REPORT ON FULL CODE ICU PATIENT FROM DAY SHIFT RN. PATIENT INTUBATED AND SEDATED ON FENTANYL. UNABLE TO TITRATE DOWN ON SEDATION DUE TO UNSTABLE OXYGENATION LEVELS. WILL ATTEMPT LATER IS STABLE. VASOPRESSIN AND LEVOPHED GTT'S WITH A BP 118/62 AND HR103. FOR GTTS AND THEIR TITRATIONS SEE IV SPREAD SHEET. LEFT NGT TO LIS AND AUSCULTATED CORRECT PLACEMENT. HOB >30 WITH STRICT ASPIRATION PRECAUTIONS IN PLACE. FAUSTIN FREE OF KINKS, HUNG BELOW BLADDER AND DRAINING TO GRAVITY. RT UPPER QUADRANT CHOLECYSTOSTOMY INTACT TO BULB SUCTION, DRAINING GREEN FLUID. MULTIPLE SKIN ISSUES, WILL TREAT PER WOUND CARE ORDERS FOR MORE INFORMATION PLEASE SEE ASSESSMENT.
[2019-02-10] MEDS: MIDAZOLAM DRIP 50 mg/50mL 50 ML IV SCH (19:56)
[2019-02-10] MEDS: PROPOFOL 100 ML IV SCH (19:56)
[2019-02-10] MEDS: fentaNYL Drip 2500mCg/250mlNS 250 ML IV SCH (20:34)
--- NOTE | 2019-02-10 20:43 | NUR ---
FAMILY MULTIPLE FAMILY MEMBERS AT BED SIDE. INFORMED ABOUT ONLY 2 AT A TIME. FAMILY ROTATED IN AND OUT OF ROOM. GRANDDAUGHTER PRESENT AND FAMILY COOPERATING. ALL QUESTIONS ANSWERED AT THIS TIME.
--- NOTE | 2019-02-10 21:29 | NUR ---
AND GRANDDAUGHTER AT BEDSIDE REQUESTING CHANGE OF CODE STATUS TO FULL DNR. CODE STATUS FORM FILLED OUT AND SIGNED. FLUENT LAO SPEAKING RN HAS THOROUGH DISCUSSION WITH LEGAL AND OTHER FAMILY REGARDING IMPLICATIONS OF DNR. STATE THEY HAD FAMILY MEETING TODAY AND WANT HIM TO BE A FULL DNR BUT NOT TO WITHDRAWAL ANY CARE AT THIS TIME. PAGED HOSPITALIST.
--- NOTE | 2019-02-10 22:05 | NUR ---
CODE STATUS CHANGE INFORMED KIET FRANK ABOUT CODE STATUS CHANGE TO DNR. ORDERS TO CHANGE STATUS RECEIVED.
--- NOTE | 2019-02-10 22:48 | NUR ---
DESATURATION PATIENT DESATURATED TO 84% SPO2. HOB TO HIGH FOWLERS. ETT SUCTION WITH SCANT MUCOSAL RETURN. AUSCULTATION OF DIMINISHED BUT PRESENT LUNG SOUNDS IN ALL 5 ARNETT. RT CALLED TO BEDSIDE. BEGAN MANUAL VENTILATION TO RESTORE SPO2 >91%.
[2019-02-11] VITALS (98 sets, daily range): BP systolic 77–136; BP diastolic 42–71
[2019-02-11] MEDS ORDERED: DEXTROSE (50%) 50ML SYRG IV SCH
[2019-02-11] MEDS ORDERED: ACCU-CHEK COMFORT CURVE STRIP VI SCH
[2019-02-11] MEDS ORDERED: InsuLIN REG 1unit/0.01ml Soln (100units/ml) SC SCH
[2019-02-11] MEDS: ACCU-CHEK COMFORT CURVE STRIP VI SCH ×4 (00:26→17:11)
[2019-02-11] MEDS: VASOPRESSIN 50 UNITS in D5W 5% 247.5 ML IV SCH (00:26)
[2019-02-11] MEDS: InsuLIN REG 1unit/0.01ml Soln (100units/ml) SC SCH ×4 (00:26→17:21)
[2019-02-11] MEDS: fentaNYL Drip 2500mCg/250mlNS 250 ML IV SCH (00:46)
--- NOTE | 2019-02-11 02:00 | NUR ---
BED BATH GIVEN PATIENT TOLERATED WELL. FULL LINEN CHANGED. BARRIER CREAM APPLIED ON SCROTUM.
[2019-02-11] MEDS: ACETYLCYSTEINE 10 %(100MG/ML) SOL 4ML NEB SCH ×6 (02:10→21:55)
[2019-02-11] MEDS: IPRATROPIUM BROM 0.5 MG/2.5ML INH SOL NEB SCH ×6 (02:10→21:54)
[2019-02-11] MEDS: ALBUTEROL SULF 2.5 MG/0.5ML(0.5%) NEB SOLN NEB SCH ×6 (02:11→21:54)
--- NOTE | 2019-02-11 04:00 | NUR ---
NEW OPTIFOAM PLACED ON BOTTOM DURING TURN. PATIENT TOLERATED WELL.
[2019-02-11 04:27] LABS: Hemoglobin 8.3 g/dL (13.5-17.5); Mean Corpuscular Hgb Conc. 34.4 g/dL (32.0-36.0); Platelet Count (auto) 37 10^3/uL (140-450)
[2019-02-11 04:32] LABS: Mean Corpuscular Hemoglobin 31.6 pg (28.0-32.0); Mean Corpuscular Volume 91.9 fL (80.0-100.0); Red Blood Cells 2.61 10^6/uL (4.5-5.90); Red Cell Distribution Width 17.3 % (11.8-14.3)
[2019-02-11 04:42] LABS: White Blood Cell 49.9 10^3/uL (4.4-10.8)
[2019-02-11 04:44] LABS: Basophils % (manual) 0 (0.0-2.0); Blast Cells 0; Eosinophils % (manual) 0 (0-7); Myelocytes % 0; Promyelocytes % 0; Reactive Lymphocytes 0
[2019-02-11 04:47] LABS: Albumin 2.3 g/dL (3.4-5.0); Calcium 6.7 mg/dL (8.5-10.1); Magnesium 2.4 mg/dL (1.6-2.6); Potassium 4.5 mmol/L (3.5-5.1)
[2019-02-11 04:52] LABS: BUN/Creatinine Ratio 11.8; Bilirubin, Total 12.8 mg/dL (0.2-1.0); Phosphorus 6.7 mg/dL (2.5-4.90); Pre Albumin 6.8 mg/dL (20.0-40.0); Total Protein 5.6 g/dL (6.4-8.2)
[2019-02-11] MEDS: BUMETANIDE INJECTION 25 MG in GIVE UN-DILUTED 0 ML IV SCH ×2 (05:57→17:10)
[2019-02-11] MEDS: ERYTHROMYCIN ETHYLSUCCINATE 200 MG/5 ML ML GT SCH ×2 (05:57)
[2019-02-11] MEDS ORDERED: InsuLIN REG 1unit/0.01ml Soln (100units/ml) ONE (05:59)
[2019-02-11] MEDS: METOCLOPRAMIDE HCL 5MG/ml INJ 2ml VIAL IV SCH ×3 (06:05→22:00)
[2019-02-11] MEDS: LACTULOSE 20Gm/30ML SOLN PO SCH (06:06)
--- NOTE | 2019-02-11 06:15 | NUR ---
CRITICAL LAB VALUE PAGEWill SHETH FOR ELEVATED WBC'S. NO NEW ORDERS RECEIVED. Addendum: 02/11/19 at 0617 by Napoleon Jeronimo RN RN SPOKE WITH DOMENIC AND INFORMED ABOUT CRITICAL LAB VALUE.
[2019-02-11 06:33] LABS: Band Neutrophils % (manual) 26; Metamyelocytes % 3
[2019-02-11 06:34] LABS: Lymphocytes % (manual) 18 (10.0-50.0); Monocytes % (manual) 10 (0-12)
--- NOTE | 2019-02-11 06:56 | NUR ---
CRITICAL LAB VALUE CALLED MD BLANDON EXCHANGE AND LEFT MESSAGE WITH NICKY ABOUT ELEVATED BUN @ 84. AWAITING CALL BACK.
--- NOTE | 2019-02-11 08:00 | NUR ---
REPORT RECEIVED PATIENT ON MECHANICAL VENTILATOR WITH FI02 AT 100%, PRESSORS INFUSING, VSS. SEE PHYSICAL ASSESSMENT.
--- NOTE | 2019-02-11 09:30 | NUR ---
Family updated on pt status Family of SUZETTE KO updated on patient's status and condition. All questions and concerns addressed. Daughter verbalized understanding.
[2019-02-11 09:57] LABS: INR 1.19 (0.9-1.15)
--- NOTE | 2019-02-11 11:32 | NUR ---
WOUND CARE NOTE: Wound care in for skin integrity monitoring. Patient continue resting in ICU bed in Rm. 101. He's still intubated and mechanically ventilated. Patient appears to be in no pain using Hassan Pinedo Faces Pain Scale. His Panfilo score is 8. Skin assessment done with the assistance of patient's nurse, FLASH Akers. Patient has generalized edema and he developed multiple skin integrity issue. His Rt earlobe has 0.7x1.2cm dry intact thin brown scab; area is clean and dry, leave open to air. He has multiple dry resolving skin tears to anterolateral abdomen, the largest measuring 2x2cm (resolving blister). Patient has scrotal edema and developed large (7x6cm) open partial thickness skin tear to posterior scrotum. Cleansed skin tears with mild soap and water, patted dry and applied Z Guard cream. Applied clean linen under scrotum as scrotal sling. Patient's sacrum remain intact, pink and blanchable. Mild redness noted on patient's nose bridge, nurse reported could be skin irritation from NG tube securement dressing. Photograph of mentioned skin issue are taken for reference. Repositioned patient for comfort facing his Lt. side, redistributed pressure points with pillows. Patient tolerated well, nurse at bedside. RECOMMENDATION: Continue with BID/PRN cleaning and application of Z Guard cream to sacral, buttocks and skin tears per MD order, clean, dry linen for scrotal sling, continue with skin/wound plan of care, continue monitoring by wound care while patient is hospitalized. Addendum: 02/11/19 at 1809 by Giuliana Calderon RN Amended: Links added.
[2019-02-11] MEDS: PANTOPRAZOLE 40 MG/10 ML VIAL INJ IV SCH ×2 (11:33→22:00)
[2019-02-11] MEDS: SODIUM CHLOR 0.9% PF (SALINE LOCK) 10ML VIAL/SYR IV SCH ×2 (11:33→22:00)
[2019-02-11] MEDS: MEROPENEM 500MG IVPB 50 ML IV SCH (11:33)
--- NOTE | 2019-02-11 12:20 | NUR ---
MD ROUNDS DR. KANG UPDATED ON PATIENTS STATUS. MD SPOKE TO DAUGHTER AND SON IN LAW ON PATIENTS POOR CONDITION AT THIS TIME. FAMILY MEETING TO BE DONE TOMORROW AT APPROX 1200.
--- NOTE | 2019-02-11 12:30 | NUR ---
ELIMINATION PATIENT HAD A SMALL, LIQUID DARK BROWN STOOL. SKIN CLEANSED. PT TOLERATED CARE WELL. 02 SATURATION DECREASED MOMENTARILY TOP 88% BUT INCREASED WITHOUT DELAY AFTER 100% SUPPLEMENT.
[2019-02-11] MEDS: PHENYLEPHRINE INJ 80 MG in SODIUM CHL 0.9% 250 ML IV SCH (14:16)
--- NOTE | 2019-02-11 14:34 | NUR ---
Nutrition Consult/Follow-up Notes Wt.: 93.1 kg Pt's intubated, sedated, no immediate family member at beside during rounds earlier. Pt's currently NPO with EN support temporarily off d/t high residuals per RN. Noted pt's previously on Glucerna 1.2 Mich @ 15 ml/hr providing 432 kcal and 21 gm proteins. pt to possibly begin PN support later today Est. Needs BW 77 [id number] kcal (25-30 kcal/kgBW), 62-77 gms pro (0.8-1.0 gms/kgBW r/t elev RFT). Will continue to monitor pertinent labs and reassess nutrient need prn Labs: BUN 84 H, CREAT 7.13 H, GLU 147 H, ALB 2.3 L, PREALB 6.8 L, TG 250 H Skin: Panfilo scale 8, high risk, pt's bilateral lower extremities hyperpigmentation per RN doc GI: Pt had 1 BM this morning with gastric drainage of 150 ml per general internist. PES: Impaired swallowing r/t current medical condition aeb pt`s intubated sedated with oder of NPO Altered nutrition related lab values r/t current/chronic medical condition aeb elev RFT hyperglycemia, hypocalcemia, mod hypoalb Will continue to monitor NPO status, skin status, pertinent labs and weight trend. F/u in 2 to 3 days. Rec.: 1.) If still NPO, consider to resume EN support at lower rate with gradual increase on feeding rate of Glucerna 1.2 Mich to 60 ml/hr goal rate as tolerated when medically appropriate. 2.) If Albumin continues trending down with improved renal labs, consider Prostat 1 pkt BID. 3.) If still NPO with GIT's not working/unable to tolerate EN support, consider PN support if medically appropriate to meet > 75% of needs 4.) Advance gradually to oral diet when medically feasible. 5.) Refer pt to CDE/RD for further nutrition education and weight monitoring upon discharge. 6.) Continue current plan of care.
--- NOTE | 2019-02-11 15:57 | NUR ---
PER DR. BAILON, VENT CHANGE TO PC. FLASH PARRA AT BEDSIDE AND AWARE. PLACE PT BACK ON PREVIOUS SETTINGS IF PC NOT TOLERATED WELL.
[2019-02-11] MEDS: NOREPINEPHRINE BITARTRATE 32 MG in D5W 5% 218 ML IV SCH ×2 (16:19→20:00)
--- NOTE | 2019-02-11 17:00 | NUR ---
Cooling Measures applied. Patient currently has temp of 99.6 , cooling measures in place.
--- NOTE | 2019-02-11 20:00 | NUR ---
ADMITTED WITH ALOC, ABDOMINAL PAIN, RUQ PAIN, FEVER AND CHILLS. 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 PATIENT HAD MULTIPLE GALLSTONES. DR MALIK PERFORMED A PERCUTANEOUS MANUEL AND INSERTED A DOWN DRAIN BAG WHICH CURRENTLY HAS NO DRNG IN IT ON THE RIGHT SIDE. ORALLY INTUBATED. CLEAR ORAL SECRETIONS. SCLERAS ARE RED. PUPILS SLUGGISH. NO ATTEMPT AT LOOKING AT US. LEFT NARE NGT TO LIS DRAINING A GOLD LIQUID IN SMALL AMOUNTS. CURRENTLY IS NPO. BILATERAL LUNG COARSENESS THAT DID NOT CLEAR WITH SUCTIONING. ABDOMEN ROUND AND SOFT. NO BM. FAUSTIN DRAINING CLEAR YELLOW LIQUID IN SMALL AMOUNTS. FOR 2 HOURS THERE IS 35CC IN URINEMETER. 3+ PITTING EDEMA OF ALL EXTREMITIES. ALL PULSES WEAK TO PALPATION. HEELS OFF BED. FLUID OVERLOAD BEING HANDLED WITH A BUMEX DRIP AT 2MG/HR. HYPOTENSION: VASOPRESSIN AND LEVOPHED. SEDATION: FENTANYL. MARIANO PICC. NO DESATURATION OR HYPOTENSION WHEN TURNING THE PATIENT TO HIS BACK.
--- NOTE | 2019-02-11 21:50 | NUR ---
RT NOTE: PT NO LONGER TOLERATING PC MODE, VT CONTINUOUSLY OVER 1000ML AND B/P DECREASED. PT SWITCHED TO AC 20 550 +12 PREVIOUS ORDER PER MD SPENCER TO CHANGE IF PT NOT TOLERATING. B/P IMPROVED AND PRESSURES NORMAL ON VENT. RN NOTIFIED AND WILL CONTINUE TO MONITOR PT.
[2019-02-11] MEDS ORDERED: LEVOFLOXACIN 250MG 50 ML IV SCH (22:00)
--- NOTE | 2019-02-11 22:00 | NUR ---
RESP THERAPIST WAS NOT HAPPY WITH THE TIDAL VOLUME, HE SWITCHED THE PATIENT BACK TO AC MODE AND DECREASED THE FIO2 TO 50%. O2 SAT IS 98%. LUNGS COARSE. SUCTIONED A SMALL AMOUNT OF THICK CLEAR/WHITE SECRETIONS. ORAL CARE DONE. REPOSITIONED TO THE RIGHT SIDE. LOOKED UNDER THE RIGHT ABDOMINAL DRESSING, IT SHOWED A COUPLE OF SKIN TEARS. ACCORDIAN DRAIN SHOWS A SMALL AMOUNT OF DARK GREEN LIQUID. THE SITE IS CLEAN AND DRY. PICC LINE IS OOZING SEROUS FLUID IN SMALL AMOUNTS. URINE OUTPUT FOR 2 HOURS WAS 110CC.
[2019-02-12] VITALS (39 sets, daily range): BP systolic 84–140; BP diastolic 41–62
--- NOTE | 2019-02-12 00:10 | NUR ---
CARDIZEM 10 MG GIVEN IV. HR 140
[2019-02-12] MEDS: InsuLIN REG 1unit/0.01ml Soln (100units/ml) SC SCH ×2 (00:13→06:28)
[2019-02-12] MEDS: ACCU-CHEK COMFORT CURVE STRIP VI SCH ×2 (00:13→06:00)
[2019-02-12] MEDS: VASOPRESSIN 50 UNITS in D5W 5% 247.5 ML IV SCH (00:14)
[2019-02-12] MEDS: fentaNYL Drip 2500mCg/250mlNS 250 ML IV SCH (00:14)
--- NOTE | 2019-02-12 00:34 | NUR ---
PATIENT WENT INTO ATRIAL FIB RATE OF134. CALL IN TO HOSPITALIST. MATA KONG CALLED . RECEIVED AN ORDER FOR CARDIZEM 10MG IV AND TO PUT IN FOR A CARDIAC CONSULT.
[2019-02-12] MEDS ORDERED: DILTIAZEM HCL 25 MG/5 ML VIAL IV ONE (01:00)
--- NOTE | 2019-02-12 01:26 | NUR ---
CARDIZEM DROPPED BLOOD PRESSURE. INCREASED THE LEVOPHED AND VASOPRESSIN. REMAINS IN ATRIAL FIB RATE 130.
[2019-02-12] MEDS ORDERED: AMIODARONE HCL 150 MG in D5W 5% 100 ML IV ONE (01:45)
[2019-02-12] MEDS ORDERED: AMIODARONE HCL (50 MG/ ML) 3 ML VIAL IV ONE (01:50)
[2019-02-12] MEDS ORDERED: AMIODARONE HCL 900 MG IV ONE (01:52)
[2019-02-12] MEDS ORDERED: AMIODARONE HCL 900 MG in DEXTROSE 500 ML IV SCH ×2 (01:55→07:55)
--- NOTE | 2019-02-12 02:00 | NUR ---
AMIODARONE BOLUS GOING.
--- NOTE | 2019-02-12 02:10 | NUR ---
AMIODARONE 1MG/MIN X 6 HOURS ENDING 0810. HR 125
--- NOTE | 2019-02-12 02:15 | NUR ---
HR 83, SINUS RHYTHM. SBP STABLE.
[2019-02-12] MEDS: ACETYLCYSTEINE 10 %(100MG/ML) SOL 4ML NEB SCH ×3 (02:38→10:14)
[2019-02-12] MEDS: IPRATROPIUM BROM 0.5 MG/2.5ML INH SOL NEB SCH ×3 (02:38→10:13)
[2019-02-12] MEDS: ALBUTEROL SULF 2.5 MG/0.5ML(0.5%) NEB SOLN NEB SCH ×3 (02:38→10:13)
--- NOTE | 2019-02-12 03:00 | NUR ---
AM LABS DRAWN
--- NOTE | 2019-02-12 04:00 | NUR ---
DECREASING THE LEVOPHED AND VASOPRESSIN. AMIODARONE AT 1MG/MIN. BUMEX 2MG/HR. WITHDRAWS TO PAINFUL STIMULI.CHANGED THE DRAW SHEET. PILLOW CASE UNDER HIS SCROTUM HAD A LARGE AMOUNT OF GREEN DRNG. AREA CLEANED. EXCORIATED AREA COVERED WITH VASELINE GAUZE DRESSING AND Z GUARD. NSR WITHOUT ECTOPY. NO FEVER. WBC MORE ELEVATED. ON AC MODE.
[2019-02-12 04:01] LABS: Hemoglobin 7.4 g/dL (13.5-17.5); Red Blood Cells 2.38 10^6/uL (4.5-5.90)
[2019-02-12 04:05] LABS: Hematocrit 22.2 % (41.0-53.0); Mean Corpuscular Hgb Conc. 33.4 g/dL (32.0-36.0); Platelet Count (auto) 36 10^3/uL (140-450); Red Cell Distribution Width 17.5 % (11.8-14.3)
[2019-02-12 04:20] LABS: Potassium 4.4 mmol/L (3.5-5.1)
[2019-02-12 04:26] LABS: Albumin 2.2 g/dL (3.4-5.0); BUN/Creatinine Ratio 10.6; Calcium 6.2 mg/dL (8.5-10.1)
[2019-02-12 04:29] LABS: Bilirubin, Total 12.2 mg/dL (0.2-1.0); Total Protein 5.6 g/dL (6.4-8.2); White Blood Cell 61.8 10^3/uL (4.4-10.8)
[2019-02-12 04:30] LABS: Basophils % (manual) 0 (0.0-2.0); Blast Cells 0; Metamyelocytes % 0; Myelocytes % 0; Promyelocytes % 0; Reactive Lymphocytes 0
[2019-02-12 05:29] LABS: Band Neutrophils % (manual) 29; Eosinophils % (manual) 1 (0-7); Lymphocytes % (manual) 23 (10.0-50.0); Monocytes % (manual) 16 (0-12)
[2019-02-12] MEDS: METOCLOPRAMIDE HCL 5MG/ml INJ 2ml VIAL IV SCH (06:00)
[2019-02-12] MEDS: BUMETANIDE INJECTION 25 MG in GIVE UN-DILUTED 0 ML IV SCH (06:00)
--- NOTE | 2019-02-12 07:30 | NUR ---
REPORT RECEIVED, ASSUMED CARE. INTUBATED BED IN LOW POSITION.
--- NOTE | 2019-02-12 08:45 | NUR ---
FAMILY AT BEDSIDE
[2019-02-12] MEDS: PROPOFOL 100 ML IV SCH (08:52)
[2019-02-12] MEDS: MIDAZOLAM DRIP 50 mg/50mL 50 ML IV SCH (08:52)
--- NOTE | 2019-02-12 10:54 | NUR ---
DR DE JESUS AT BEDSIDE, SPOKE WITH , DAUGHTER AND GRANDDAUGHTER REGARDING PATIENT CONDITION/PROGNOSIS.
--- NOTE | 2019-02-12 11:27 | NUR ---
PAGED DR DE JESUS, FAMILY AT BEDSIDE AND REQUESTING TO TERMINALLY WEAN PATIENT. ALL QUESTIONS/CONCERNS ADDRESSED. AWAITING CALL BACK.
[2019-02-12] MEDS: PANTOPRAZOLE 40 MG/10 ML VIAL INJ IV SCH (11:32)
[2019-02-12] MEDS: SODIUM CHLOR 0.9% PF (SALINE LOCK) 10ML VIAL/SYR IV SCH (11:32)
[2019-02-12] MEDS: MEROPENEM 500MG IVPB 50 ML IV SCH (11:32)
--- NOTE | 2019-02-12 11:47 | NUR ---
DR DE JESUS SIGNED CODE STATUS FORM FOR TERMINAL WEAN WELL . FAMILY ASKED THAT RN PREMEDICATE PATIENT WITH MORPHINE ORDERED PRIOR TO TERMINAL WEAN. RT AWARE OF TERMINAL WEAN ORDER.
[2019-02-12] MEDS ORDERED: MORPHINE SULF INJ 2 MG/ML SYRINGE 1ML IV PRN (12:00)
[2019-02-12] MEDS ORDERED: LORazepam 2MG/ML-1ML VIAL IV PRN (12:00)
--- NOTE | 2019-02-12 12:10 | NUR ---
Respiratory note: PT TERMINALLY EXTUBATED PER DR DE JESUS AT 1210. FAMILY AND RN AT BEDSIDE.
--- NOTE | 2019-02-12 12:16 | NUR ---
RT/RN AT BEDSIDE. MORPHINE GIVEN ORDERED PER FAMILY REQUEST AT 1209. EXTUBATED AND ALL CURRENT INFUSING IV DRIPS STOPPED AT 1210. FAMILY AT BEDSIDE.
--- NOTE | 2019-02-12 12:42 | NUR ---
DR DE JESUS PRONOUNCED PATIENT TO BE AT THIS TIME
--- NOTE | 2019-02-12 12:46 | NUR ---
[facility] NOTIFIED OF . CASE IS CLOSED WITH REFERENCE NUMBER [id number].
--- NOTE | 2019-02-12 12:52 | NUR ---
NEUROLOGY MANAGER DISPATCH AWARE OF , AWAITING CALL BACK FROM NEUROLOGY MANAGER
--- NOTE | 2019-02-12 16:22 | NUR ---
PAN PUSHER CALLED BACK, NOT A CORONERS CASE PER JOSY PA PAN PUSHER.
--- NOTE | 2019-02-12 16:27 | NUR ---
FAMILY LEFT FACILITY SO THAT RN CAN PROVIDE [facility] M[facility]EM CARE[facility] [place] [id number] [place] [address] PH[address] NUMBER [phone] [employer]Y TEACHER BODY
--- NOTE | 2019-02-12 17:22 | NUR ---
POST MORTEM CARE COMPLETED, AWAITING [facility]
--- NOTE | 2019-02-12 17:42 | NUR ---
[facility] LEFT FACILITY WITH BODY
== END 2019-02-12 17:00 | disposition expired | DRG 870 ==
LOC: ER 17:44 → TELE 17:45 → ICU WEST 21:53
PROVIDERS: ADMIT Nurse Practitioner Family; ATTEND Internal Medicine
PROC: 5A1955Z Respiratory Ventilation, Greater than 96 Consecutive Hours (ICD-10-PCS; principal; 2019-02-04)
PROC: 0BH17EZ Insertion of Endotracheal Airway into Trachea, Via Natural or Artificial Opening (ICD-10-PCS; 2019-02-04)
PROC: 02HV33Z Insertion of Infusion Device into Superior Vena Cava, Percutaneous Approach (ICD-10-PCS; 2019-02-04)
PROC: 0F9440Z Drainage of Gallbladder with Drainage Device, Percutaneous Endoscopic Approach (ICD-10-PCS; 2019-02-05)
DX: A41.9 Sepsis, unspecified organism (principal); J18.9 Pneumonia, unspecified organism; R65.21 Severe sepsis with septic shock; N17.0 Acute kidney failure with tubular necrosis; E43 Unspecified severe protein-calorie malnutrition; J96.21 Acute and chronic respiratory failure with hypoxia; K92.0 Hematemesis; D62 Acute posthemorrhagic anemia; E87.2 Acidosis; J44.0 Chronic obstructive pulmonary disease with (acute) lower respiratory infection; D68.9 Coagulation defect, unspecified; E87.1 Hypo-osmolality and hyponatremia; I13.0 Hypertensive heart and chronic kidney disease with heart failure and stage 1 through stage 4 chronic kidney disease, or unspecified chronic kidney disease; D69.6 Thrombocytopenia, unspecified; E03.9 Hypothyroidism, unspecified; I50.9 Heart failure, unspecified; K21.9 Gastro-esophageal reflux disease without esophagitis; K80.70 Calculus of gallbladder and bile duct without cholecystitis without obstruction; N40.0 Benign prostatic hyperplasia without lower urinary tract symptoms; E83.42 Hypomagnesemia; E83.51 Hypocalcemia; K72.90 Hepatic failure, unspecified without coma; N18.3 Chronic kidney disease, stage 3 (moderate); E11.22 Type 2 diabetes mellitus with diabetic chronic kidney disease; I48.91 Unspecified atrial fibrillation; Z51.5 Encounter for palliative care; Z66 Do not resuscitate; Z79.84 Long term (current) use of oral hypoglycemic drugs; Z99.81 Dependence on supplemental oxygen; Z90.49 Acquired absence of other specified parts of digestive tract; Z79.899 Other long term (current) drug therapy; Z68.29 Body mass index [BMI] 29.0-29.9, adult
CPT/HCPCS: 10022; 36415; 36569; 36600; 71045; 71250; 74176; 76705; 76942; 80048; 80053; 80202; 81001; 82040; 82150; 82270; 82805; 82962; 83036; 83605; 83690; 83735; 83880; 84100; 84443; 84478; 84484; 85007; 85025; 85027; 85610; 85730; 86850; 86900; 86901; 86920; 87040; 87070; 87077; 87081; 87186; 87205; 93005; 93306; 94002; 94003; 94640; 94668; A4618; C1729; C9113; G0378; J0330; J0610; J0696; J1815; J2001; J2185; J2250; J2405; J2543; J3430; J7060; P9047